=== PATIENT | male | born 1980 | race Hispanic/Latino ===

== ENCOUNTER 2023-06-23 08:03 | Emergency (ER) | payer SELFPAY ==
--- OUTSIDE RECORDS SUMMARY | 2023-06-23 08:07 | XMS REPORT | Continuity of Care Document ---
Author Name Unknown Address [address] [facility] [address] [place] [address] [facility] thconnect Address [address] [facility] [address] [place] [address] Care Team Providers Care District Gauger Name Role Phone Cherie Monterroso Primary Care Physician [phone] Medications Ordered Medication Name Filled Medication Name Start Date Stop Date Current Medication? Ordering Clinician Indication Dosage Frequency Signature (SIG) Comments Components Source Dose Unknown 2021-03 2-14 00:00: 00 No Dose Unknown 807 00:00: 00 No Dose Unknown 2020-03 2-16 00:00: 00 No lisinopril 20 mg tablet 2020-03 2-16 00:00: 00 No 1mg lisinopril 20 mg tablet 0 4-27 00:00: 00 No 1mg Celebrex 200 mg capsule 0 4-27 00:00: 00 No 1mg lisinopril 20 mg tablet 0 4-27 00:00: 00 No 1mg Celebrex 200 mg capsule 0 4-27 00:00: 00 No 1mg lisinopril 20 mg tablet 0 4-17 00:00: 00 No 1mg lisinopril 20 mg tablet 0 4-17 00:00: 00 No 1mg lisinopril 20 mg tablet 0 3-20 00:00: 00 No 1mg lisinopril 20 mg tablet 0 3-20 00:00: 00 No 1mg cyclobenzap rine 10 mg tablet 0 3-13 00:00: 00 No 1mg cyclobenzap rine 10 mg tablet 0 3-13 00:00: 00 No 1mg cyclobenzap rine 10 mg tablet 2017-03 2-14 00:00: 00 No 1mg cyclobenzap rine 10 mg tablet 2017-03 2-14 00:00: 00 No 1mg prednisone 10 mg tablet 06-27 00:00: 00 No mg cyclobenzap rine 10 mg tablet 06-27 00:00: 00 No 1mg ibuprofen 800 mg tablet 06-27 00:00: 00 No 1mg prednisone 10 mg tablet 06-27 00:00: 00 No mg cyclobenzap rine 10 mg tablet 06-27 00:00: 00 No 1mg ibuprofen 800 mg tablet 06-27 00:00: 00 No 1mg Vital Signs Vital Name Observation Time Observation Value Comments S ource BP Systolic 2022-02-24 08:18:00 144 mm[Hg] BP Diastolic 2022-02-24 08:18:00 89 mm[Hg] Weight Measured 2022-02-24 08:18:00 223.40 pounds Height Measured 2022-02-24 08:18:00 71.50 inches Body Temperature 2022-02-24 08:18:00 98.20 degrees Heart Rate 2022-02-24 08:18:00 52.00 /min Respiratory Rate 2022-02-24 08:18:00 18.00 /min BP Systolic 2021-10-21 13:19:00 137 mm[Hg] BP Diastolic 2021-10-21 13:19:00 86 mm[Hg] Weight Measured 2021-10-21 13:19:00 232.20 pounds Height Measured 2021-10-21 13:19:00 71.50 inches Body Temperature 2021-10-21 13:19:00 98.30 degrees Heart Rate 2021-10-21 13:19:00 78.00 /min Respiratory Rate 2021-10-21 13:19:00 18.00 /min BP Systolic 2021-03-03 08:41:00 163 mm[Hg] BP Diastolic 2021-03-03 08:41:00 82 mm[Hg] Weight Measured 2021-03-03 08:41:00 249.40 pounds Height Measured 2021-03-03 08:41:00 71.50 inches Body Temperature 2021-03-03 08:41:00 98.30 degrees Heart Rate 2021-03-03 08:41:00 65.00 /min Respiratory Rate 2021-03-03 08:41:00 21.00 /min BP Systolic 2019-07-14 09:09:00 150 mm[Hg] BP Diastolic 2019-07-14 09:09:00 84 mm[Hg] Weight Measured 2019-07-14 09:09:00 246.60 pounds Height Measured 2019-07-14 09:09:00 71.50 inches Body Temperature 2019-07-14 09:09:00 99.10 degrees Heart Rate 2019-07-14 09:09:00 58.00 /min Respiratory Rate 2019-07-14 09:09:00 16.00 /min BP Systolic 2019-06-06 17:25:00 157 mm[Hg] BP Diastolic 2019-06-06 17:25:00 95 mm[Hg] Weight Measured 2019-06-06 17:25:00 250.40 pounds Height Measured 2019-06-06 17:25:00 71.50 inches Body Temperature 2019-06-06 17:25:00 98.70 degrees Heart Rate 2019-06-06 17:25:00 81.00 /min Respiratory Rate 2019-06-06 17:25:00 16.00 /min BP Systolic 2019-05-30 13:22:00 153 mm[Hg] BP Diastolic 2019-05-30 13:22:00 93 mm[Hg] Weight Measured 2019-05-30 13:22:00 244.60 pounds Height Measured 2019-05-30 13:22:00 71.50 inches Body Temperature 2019-05-30 13:22:00 98.20 degrees Heart Rate 2019-05-30 13:22:00 70.00 /min Respiratory Rate 2019-05-30 13:22:00 BP Systolic 2018-03-01 11:05:00 148 mm[Hg] BP Diastolic 2018-03-01 11:05:00 85 mm[Hg] Weight Measured 2018-03-01 11:05:00 235.40 pounds Height Measured 2018-03-01 11:05:00 71.50 inches Body Temperature 2018-03-01 11:05:00 98.40 degrees Heart Rate 2018-03-01 11:05:00 79.00 /min Respiratory Rate 2018-03-01 11:05:00 16.00 /min BP Systolic 2016-07-11 17:21:00 132 mm[Hg] BP Diastolic 2016-07-11 17:21:00 88 mm[Hg] Weight Measured 2016-07-11 17:21:00 210.00 pounds Height Measured 2016-07-11 17:21:00 71.50 inches Body Temperature 2016-07-11 17:21:00 98.50 degrees Heart Rate 2016-07-11 17:21:00 72.00 /min Respiratory Rate 2016-07-11 17:21:00 15.00 /min BP Systolic 2016-06-27 15:03:00 143 mm[Hg] BP Diastolic 2016-06-27 15:03:00 87 mm[Hg] Weight Measured 2016-06-27 15:03:00 209.20 pounds Height Measured 2016-06-27 15:03:00 71.50 inches Body Temperature 2016-06-27 15:03:00 98.80 degrees Heart Rate 2016-06-27 15:03:00 50.00 /min Respiratory Rate 2016-06-27 15:03:00 Plan of Care Planned Activity Planned Date Details Comments Source Goal Plan of Care Note [code = 39706-0] Goal Plan of Care Note [code = 40155-5] Goal Plan of Care Note [code = 51236-1] Goal Plan of Care Note [code = 88560-1] Goal Plan of Care Note [code = 61133-3] Goal Plan of Care Note [code = 41026-1] Goal Plan of Care Note [code = 32648-5] Goal Plan of Care Note [code = 86723-5] Goal Plan of Care Note [code = 43485-5] Goal Plan of Care Note [code = 50598-3] Goal Plan of Care Note [code = 50409-0] Goal Plan of Care Note [code = 25605-5] Goal Plan of Care Note [code = 84591-7] Goal Plan of Care Note [code = 00485-5] Goal Plan of Care Note [code = 94892-4] Goal Plan of Care Note [code = 16022-1] Goal Plan of Care Note [code = 68471-4] Goal Plan of Care Note [code = 54409-6] Goal Plan of Care Note [code = 14601-7] Goal Plan of Care Note [code = 81113-9] Goal Plan of Care Note [code = 80340-1] Goal Plan of Care Note [code = 50841-9] Goal Plan of Care Note [code = 72340-3] Goal Plan of Care Note [code = 65022-4] Goal Plan of Care Note [code = 98820-0] Goal Plan of Care Note [code = 16403-4] Goal Plan of Care Note [code = 64992-4] Goal Plan of Care Note [code = 30652-9] Goal Plan of Care Note [code = 60217-6] Goal Plan of Care Note [code = 90573-7] Goal Plan of Care Note [code = 05778-9] Goal Plan of Care Note [code = 17983-3] Goal Plan of Care Note [code = 50632-3] Goal Plan of Care Note [code = 51453-9] Goal Plan of Care Note [code = 69627-0] Goal Plan of Care Note [code = 00310-6] Goal Plan of Care Note [code = 53989-3] Goal Plan of Care Note [code = 14439-3] Goal Plan of Care Note [code = 69120-3] Goal Plan of Care Note [code = 95599-8] Goal Plan of Care Note [code = 79442-9] Goal Plan of Care Note [code = 30623-3] Goal Plan of Care Note [code = 59505-0] Goal Plan of Care Note [code = 71928-8] Goal Plan of Care Note [code = 35071-3] Goal Plan of Care Note [code = 94762-5] Goal Plan of Care Note [code = 99981-7] Goal Plan of Care Note [code = 85682-1] Goal Plan of Care Note [code = 83209-0] Goal Plan of Care Note [code = 06253-8] Goal Plan of Care Note [code = 61704-1] Encounters Start Date/Time End Date/Time Encounter Type Admission Type Attending Clinicians Care Facility Care Department Encounter ID Source 2022-03-31 15:42:03 2022-03-31 15:42:03 Outpatient [facility] [id number] K[address] Hay 2022-03-11 09:32:29 2022-03-11 09:32:29 Outpatient [facility] [id number] Kade Hay 2022-03-10 00:00:00 2022-03-10 00:00:00 Outpatient Visit [id number] 2022-02-24 08:08:12 2022-02-24 08:08:12 Outpatient [facility] [id number] Kade Hay 2022-02-24 00:00:00 2022-02-24 00:00:00 Outpatient Visit [id number] 2021-10-21 00:00:00 2021-10-21 00:00:00 Outpatient Visit [id number] Results Test Description Test Time Test Comments Results Result Co mments Source VITAMIN [id number] 06:50:56* Test Item Value Reference Range Interpretation Comme nts VITAMIN B-12 (test code = 2840) 439 PG/ML 200-950 TSH, THIRD [id number] 06:50:56* Test Item Value Reference Range Interpretation Comme nts TSH, THIRD GENERATION (test code = 2821) 2.300 UIU/ML 0.400-4.100 SEDIMENTATION [id number] 04:43:36* Test Item Value Reference Range Interpretation Comme nts SEDIMENTATION RATE (test cod e = 1017) 5 MM/HOUR 0-15 C-REACTIVE [id number] 03:42:32* Test Item Value Reference Range Interpretation Comme nts C-REACTIVE PROTEIN (test code = 3513) <0.3 MG/DL <0.5 UNLESS OTHERW ISE INDICATED, ALL TESTING PERFORMED [facility] [address] [place] [address] AIRLINE RADIO OPERATOR: CESAR BAUER M.D. CLIA NUMBER [id number] [place]. [id number] COMPREHENSIVE METABOLIC [id number] 03:41:56* Test Item Value Reference Range Interpretation Comme nts GLUCOSE (test code = 2216) 109 MG/DL 70-99 H BUN (test code = 2207) 17 MG/DL 6-20 CREATININE (test code = 2213) 0.88 MG/DL 0.80-1.40 eGFR (2020 CKD-EPI) (test code = ) 111 ML/MIN/1.73 >60 CALC BUN/CREAT (test code = 2234) 19 RATIO 6-28 SODIUM (test code = 2230) 142 MEQ/L 133-146 POTASSIUM (test code = 2227) 4.2 MEQ/L 3.5-5.4 CHLORIDE (test code = 2214) 104 MEQ/L 95-107 CARBON DIOXIDE (test code = 2205) 29 MEQ/L 19-31 CALCIUM (test code = 2208) 9.6 MG/DL 8.5-10.5 PROTEIN, TOTAL (test code = 2228) 7.3 G/DL 6.1-8.3 ALBUMIN (test code = 2200) 4.7 G/DL 3.5-5.2 CALC GLOBULIN (test code = 2240) 2.6 G/DL 1.9-3.7 CALC A/G RATIO (test code = 2233) 1.8 RATIO 1.0-2.6 BILIRUBIN, TOTAL (test code = 2206) 0.2 MG/DL See_Comment [Automated me ssage] The system which generated this result transmitted reference range: <=1.2. The reference range was not used to interpret this result as normal/abnormal. ALKALINE PHOSPHATASE (test code = 2203) 80 U/L 40-119 AST (test code = 8) 17 U/L 9-50 ALT (test code = 2219) 24 U/L 5-50 HEMOGLOBIN [id number] 14:02:09* Test Item Value Reference Range Interpretation Comme nts HEMOGLOBIN A1c (test code = 07612) 5.5 % 4.2-5.6 UNLESS OTHERWISE INDICATED, ALL TESTING PERFORMED [facility] [address] [place] [address] AIRLINE RADIO OPERATOR: CESAR BAUER M.D. CLIA NUMBER [id number] [place]. [id number] LIPID [id number] 04:41:30* Test Item Value Reference Range Interpretation Comme nts CHOLESTEROL (test code = 2210) 152 MG/DL <200 TRIGLYCERIDES (test code = 2232) 149 MG/DL <150 HDL CHOLESTEROL (test code = 2220) 39 MG/DL >39 L CALC LDL CHOL (test code = 2237) 88 MG/DL <100 NOTE: CALCULATED LDL IS BASED ON JOHN-EDGE METHOD WHICHINCLUDES ADJUSTABLE TRIGLYCERIDE:VLDL CHOLESTEROL RATIO.THIS FACTOR VARIES BY MEASURED TRIGLYCERIDE AND NON-HDLCHOLESTEROL CONCENTRATIONS WITH INCREASED CALCULATED LDL SEENIN HIGHER TRIGLYCERIDE OR LOWER NON-HDL SPECIMENS. FOR MOREINFORMATION, SEE CLIENT ANNOUNCEMENT AT [email or web address] RISK RATIO LDL/HDL (test code = 2238) 2.26 RATIO <3.55 COMPREHENSIVE METABOLIC [id number] 04:41:30* Test Item Value Reference Range Interpretation Comme nts GLUCOSE (test code = 2217) 102 MG/DL 70-99 H BUN (test code = 8) 19 MG/DL 6-20 CREATININE (test code = 2214) 0.95 MG/DL 0.80-1.40 eGFR (2020 CKD-EPI) (test code = 99632) 104 ML/MIN/1.73 >60 CALC BUN/CREAT (test code = 2235) 20 RATIO 6-28 SODIUM (test code = 223) 143 MEQ/L 133-146 POTASSIUM (test code = 2228) 4.3 MEQ/L 3.5-5.4 CHLORIDE (test code = 2215) 104 MEQ/L 95-107 CARBON DIOXIDE (test code = 2206) 27 MEQ/L 19-31 CALCIUM (test code = 2209) 9.6 MG/DL 8.5-10.5 PROTEIN, TOTAL (test code = 222) 7.1 G/DL 6.1-8.3 ALBUMIN (test code = 2201) 4.8 G/DL 3.5-5.2 CALC GLOBULIN (test code = 2240) 2.3 G/DL 1.9-3.7 CALC A/G RATIO (test code = 2234) 2.1 RATIO 1.0-2.6 BILIRUBIN, TOTAL (test code = 2206) 0.6 MG/DL See_Comment [Automated me ssage] The system which generated this result transmitted reference range: <=1.2. The reference range was not used to interpret this result as normal/abnormal. ALKALINE PHOSPHATASE (test code = 2204) 73 U/L 40-117 AST (test code = 2218) 18 U/L 9-50 ALT (test code = 2219) 25 U/L 5-50 UNLESS OTHERWISE INDICATED, ALL TESTING PERFORMED [facility] [address] [place] [address] AIRLINE RADIO OPERATOR: CESAR BAUER M.D. CLIA NUMBER [id number] [place]. [id number] LIPID [id number] 00:00:00* Test Item Value Reference Range Interpretation Comme nts CHOLESTEROL (test code = 2210) 152 MG/DL TRIGLYCERIDES (test code = 2232) 149 MG/DL HDL CHOLESTEROL (test code = 2220) 39 MG/DL CALC LDL CHOL (test code = 2237) 88 MG/DL RISK RATIO LDL/HDL (test cod e = 2238) 2.26 RATIO LIPID [id number] 00:00:00* Test Item Value Reference Range Interpretation Comme nts CHOLESTEROL (test code = 2210) 152 MG/DL TRIGLYCERIDES (test code = 2232) 149 MG/DL HDL CHOLESTEROL (test code = 2220) 39 MG/DL CALC LDL CHOL (test code = 2237) 88 MG/DL RISK RATIO LDL/HDL (test cod e = 2238) 2.26 RATIO COMPREHENSIVE METABOLIC [id number] 00:00:00* Test Item Value Reference Range Interpretation Comme nts GLUCOSE (test code = 2217) 102 MG/DL BUN (test code = 2208) 19 MG/DL CREATININE (test code = 2214) 0.95 MG/DL eGFR (2020 CKD-EPI) (test code = 59566) 104 ML/MIN/1.73 CALC BUN/CREAT (test code = 2235) 20 RATIO SODIUM (test code = 2231) 143 MEQ/L POTASSIUM (test code = 2228) 4.3 MEQ/L CHLORIDE (test code = 2215) 104 MEQ/L CARBON DIOXIDE (test code = 2206) 27 MEQ/L CALCIUM (test code = 2209) 9.6 MG/DL PROTEIN, TOTAL (test code = 2229) 7.1 G/DL ALBUMIN (test code = 2201) 4.8 G/DL CALC GLOBULIN (test code = 2240) 2.3 G/DL CALC A/G RATIO (test code = 2234) 2.1 RATIO BILIRUBIN, TOTAL (test code = 2207) 0.6 MG/DL ALKALINE PHOSPHATASE (test code = 2204) 73 U/L AST (test code = 2218) 18 U/L ALT (test code = 2219) 25 U/L COMPREHENSIVE METABOLIC [id number] 00:00:00* Test Item Value Reference Range Interpretation Comme nts GLUCOSE (test code = 2217) 102 MG/DL BUN (test code = 2208) 19 MG/DL CREATININE (test code = 2214) 0.95 MG/DL eGFR (2020 CKD-EPI) (test code = 89140) 104 ML/MIN/1.73 CALC BUN/CREAT (test code = 2235) 20 RATIO SODIUM (test code = 2231) 143 MEQ/L POTASSIUM (test code = 2228) 4.3 MEQ/L CHLORIDE (test code = 2215) 104 MEQ/L CARBON DIOXIDE (test code = 2206) 27 MEQ/L CALCIUM (test code = 2209) 9.6 MG/DL PROTEIN, TOTAL (test code = 2229) 7.1 G/DL ALBUMIN (test code = 2201) 4.8 G/DL CALC GLOBULIN (test code = 2240) 2.3 G/DL CALC A/G RATIO (test code = 2234) 2.1 RATIO BILIRUBIN, TOTAL (test code = 2207) 0.6 MG/DL ALKALINE PHOSPHATASE (test code = 2204) 73 U/L AST (test code = 2218) 18 U/L ALT (test code = 2219) 25 U/L LIPID [id number] 00:00:00* Test Item Value Reference Range Interpretation Comme nts CHOLESTEROL (test code = 2210) 152 MG/DL TRIGLYCERIDES (test code = 2232) 149 MG/DL HDL CHOLESTEROL (test code = 2220) 39 MG/DL CALC LDL CHOL (test code = 2237) 88 MG/DL RISK RATIO LDL/HDL (test cod e = 2238) 2.26 RATIO LIPID [id number] 00:00:00* Test Item Value Reference Range Interpretation Comme nts CHOLESTEROL (test code = 2210) 152 MG/DL TRIGLYCERIDES (test code = 2232) 149 MG/DL HDL CHOLESTEROL (test code = 2220) 39 MG/DL CALC LDL CHOL (test code = 2237) 88 MG/DL RISK RATIO LDL/HDL (test cod e = 2238) 2.26 RATIO COMPREHENSIVE METABOLIC [id number] 00:00:00* Test Item Value Reference Range Interpretation Comme nts GLUCOSE (test code = 2217) 102 MG/DL BUN (test code = 2208) 19 MG/DL CREATININE (test code = 2214) 0.95 MG/DL eGFR (2020 CKD-EPI) (test code = 59932) 104 ML/MIN/1.73 CALC BUN/CREAT (test code = 2235) 20 RATIO SODIUM (test code = 2231) 143 MEQ/L POTASSIUM (test code = 2228) 4.3 MEQ/L CHLORIDE (test code = 2215) 104 MEQ/L CARBON DIOXIDE (test code = 2206) 27 MEQ/L CALCIUM (test code = 2209) 9.6 MG/DL PROTEIN, TOTAL (test code = 2229) 7.1 G/DL ALBUMIN (test code = 2201) 4.8 G/DL CALC GLOBULIN (test code = 2240) 2.3 G/DL CALC A/G RATIO (test code = 2234) 2.1 RATIO BILIRUBIN, TOTAL (test code = 2207) 0.6 MG/DL ALKALINE PHOSPHATASE (test code = 2204) 73 U/L AST (test code = 2218) 18 U/L ALT (test code = 2219) 25 U/L COMPREHENSIVE METABOLIC [id number] 00:00:00* Test Item Value Reference Range Interpretation Comme nts GLUCOSE (test code = 2217) 102 MG/DL BUN (test code = 2208) 19 MG/DL CREATININE (test code = 2214) 0.95 MG/DL eGFR (2020 CKD-EPI) (test code = 93759) 104 ML/MIN/1.73 CALC BUN/CREAT (test code = 2235) 20 RATIO SODIUM (test code = 2231) 143 MEQ/L POTASSIUM (test code = 2228) 4.3 MEQ/L CHLORIDE (test code = 2215) 104 MEQ/L CARBON DIOXIDE (test code = 2206) 27 MEQ/L CALCIUM (test code = 2209) 9.6 MG/DL PROTEIN, TOTAL (test code = 2229) 7.1 G/DL ALBUMIN (test code = 2201) 4.8 G/DL CALC GLOBULIN (test code = 2240) 2.3 G/DL CALC A/G RATIO (test code = 2234) 2.1 RATIO BILIRUBIN, TOTAL (test code = 2207) 0.6 MG/DL ALKALINE PHOSPHATASE (test code = 2204) 73 U/L AST (test code = 2218) 18 U/L ALT (test code = 2219) 25 U/L PSA, [id number] 05:29:41* Test Item Value Reference Range Interpretation Comme nts PSA, TOTAL (test code = 2606) 0.32 NG/ML See_Comment NOTE: Methodolog y is Gill Evelina Electrochemiluminescence Immunoassay traceable to WHO reference standard 96/760. UNLESS OTHERWISE INDICATED, ALL TESTING PERFORMED [facility] [address] [place] [address] AIRLINE RADIO OPERATOR: CESAR BAUER M.D. [place] NUMBER [id number] [place]. [id number] [Automated message] The system which generated this result transmitted reference range: <=4.00. The reference range was not used to interpret this result as normal/abnormal. LIPID [id number] 03:50:33* Test Item Value Reference Range Interpretation Comme nts CHOLESTEROL (test code = 2210) 133 MG/DL <200 TRIGLYCERIDES (test code = 2232) 108 MG/DL <150 HDL CHOLESTEROL (test code = 2220) 34 MG/DL >39 L CALC LDL CHOL (test code = 2237) 80 MG/DL <100 NOTE: CALCULATED LDL IS BASED ON JOHN-EDGE METHOD WHICHINCLUDES ADJUSTABLE TRIGLYCERIDE:VLDL CHOLESTEROL RATIO.THIS FACTOR VARIES BY MEASURED TRIGLYCERIDE AND NON-HDLCHOLESTEROL CONCENTRATIONS WITH INCREASED CALCULATED LDL SEENIN HIGHER TRIGLYCERIDE OR LOWER NON-HDL SPECIMENS. FOR MOREINFORMATION, SEE CLIENT ANNOUNCEMENT AT [email or web address] RISK RATIO LDL/HDL (test code = 2238) 2.35 RATIO <3.55 COMPREHENSIVE METABOLIC [id number] 03:50:33* Test Item Value Reference Range Interpretation Comme nts GLUCOSE (test code = 2217) 107 MG/DL 70-99 H BUN (test code = 2208) 21 MG/DL 6-20 H CREATININE (test code = 2213) 0.93 MG/DL 0.80-1.40 EFFECTIVE 02/28/2021, [facility] HAS IMPLEMENTED THE NKF-ASN RECOMMENDED KD-EPI EGFR REFIT CALCULATION THAT DOES NOT INCLUDE A COEFFICIENT FORRACE. FOR MORE INFORMATION, SEE ANNOUNCEMENT [email or web address] .[employer]/EGFR_CALC eGFR (2020 CKD-EPI) (test code = ) 106 ML/MIN/1.73 >60 CALC BUN/CREAT (test code = 2234) 23 RATIO 6-28 SODIUM (test code = 2230) 145 MEQ/L 133-146 POTASSIUM (test code = 2227) 4.6 MEQ/L 3.5-5.4 CHLORIDE (test code = 2214) 107 MEQ/L 95-107 CARBON DIOXIDE (test code = 2205) 26 MEQ/L 19-31 CALCIUM (test code = 2208) 9.5 MG/DL 8.5-10.5 PROTEIN, TOTAL (test code = 2228) 7.3 G/DL 6.1-8.3 ALBUMIN (test code = 2200) 4.8 G/DL 3.5-5.2 CALC GLOBULIN (test code = 2240) 2.5 G/DL 1.9-3.7 CALC A/G RATIO (test code = 2233) 1.9 RATIO 1.0-2.6 BILIRUBIN, TOTAL (test code = 2206) 0.4 MG/DL See_Comment [Automated me ssage] The system which generated this result transmitted reference range: <=1.2. The reference range was not used to interpret this result as normal/abnormal. ALKALINE PHOSPHATASE (test code = 2203) 100 U/L 40-117 AST (test code = 2218) 23 U/L 9-50 ALT (test code = 2219) 32 U/L 5-50 CBC W/AUTO DIFF WITH [id number] 03:49:19* Test Item Value Reference Range Interpretation Comme nts WBC (test code = 1001) 6.0 K/UL 3.5-11.0 RBC (test code = 1002) 5.05 M/UL 4.50-6.10 HEMOGLOBIN (test code = 1003) 14.5 G/DL 13.5-17.0 HEMATOCRIT (test code = 1004) 42.7 % 40.0-51.0 MCV (test code = 1005) 84.6 fL 80.0-99.0 MCH (test code = 1006) 28.7 PG 25.0-33.0 MCHC (test code = 1007) 34.0 G/DL 31.0-36.0 RDW (test code = 1038) 12.9 % 11.5-15.0 NEUTROPHILS (test code = 1008) 56.2 % NOTE: EFFECTIVE 02/07/2021, REFERENCE INTERVALS AND FLAGGING FORRELATIVE (%) WBC DIFFERENTIAL WILL BE ELIMINATED REDUNDANT TOABSOLUTE COUNTS.SEE [email or web address] te LYMPHOCYTES (test code = 1010) 31.4 % MONOCYTES (test code = 1011) 6.5 % EOSINOPHILS (test code = 1012) 5.3 % BASOPHILS (test code = 1013) 0.3 % IMMATURE GRANYLOCYTES (test code = 1036) 0.3 % NUCLEATED RBCS (test code = 1065) 0.0 /100 WBC'S See_Comment [Automated message] The system which generated this result transmitted reference range: 0.0. The reference range was not used to interpret this result as normal/abnormal. PLATELET COUNT (test code = 1015) 236 K/UL 130-400 ABSOLUTE NEUTROPHILS (test code = 1066) 3.37 K/UL 1.50-7.50 ABSOLUTE LYMPHOCYTES (test code = 1067) 1.89 K/UL 1.00-4.00 ABSOLUTE MONOCYTES (test code = 1068) 0.39 K/UL 0.20-1.00 ABSOLUTE EOSINOPHILS (test code = 1040) 0.32 K/UL 0.00-0.50 ABSOLUTE BASOPHILS (test code = 1069) 0.02 K/UL 0.00-0.20 ABS IMMATURE GRANULOCYTES (test code = 1020) 0.02 K/UL 0.00-0.10 ABS NUCLEATED RBCS (test code = 94006) 0.00 K/UL 0.00-0.11 COMPREHENSIVE METABOLIC [id number] 00:00:00* Test Item Value Reference Range Interpretation Comme nts GLUCOSE (test code = 2217) 107 MG/DL BUN (test code = 2208) 21 MG/DL CREATININE (test code = 2214) 0.93 MG/DL eGFR (2020 CKD-EPI) (test code = 76669) 106 ML/MIN/1.73 CALC BUN/CREAT (test code = 2235) 23 RATIO SODIUM (test code = 2231) 145 MEQ/L POTASSIUM (test code = 2228) 4.6 MEQ/L CHLORIDE (test code = 2215) 107 MEQ/L CARBON DIOXIDE (test code = 2206) 26 MEQ/L CALCIUM (test code = 2209) 9.5 MG/DL PROTEIN, TOTAL (test code = 2229) 7.3 G/DL ALBUMIN (test code = 2201) 4.8 G/DL CALC GLOBULIN (test code = 2240) 2.5 G/DL CALC A/G RATIO (test code = 2234) 1.9 RATIO BILIRUBIN, TOTAL (test code = 2207) 0.4 MG/DL ALKALINE PHOSPHATASE (test code = 2204) 100 U/L AST (test code = 2218) 23 U/L ALT (test code = 2219) 32 U/L PSA, [id number] 00:00:00* Test Item Value Reference Range Interpretation Comme nts PSA, TOTAL (test code = 2606) 0.32 NG/ML PSA, [id number] 00:00:00* Test Item Value Reference Range Interpretation Comme nts PSA, TOTAL (test code = 2606) 0.32 NG/ML PSA, [id number] 00:00:00* Test Item Value Reference Range Interpretation Comme nts PSA, TOTAL (test code = 2606) 0.32 NG/ML CBC W/AUTO [id number] 00:00:00* Test Item Value Reference Range Interpretation Comme nts WBC (test code = 1001) 6.0 K/UL RBC (test code = 1002) 5.05 M/UL HEMOGLOBIN (test code = 1003) 14.5 G/DL HEMATOCRIT (test code = 1004) 42.7 % MCV (test code = 1005) 84.6 fL MCH (test code = 1006) 28.7 PG MCHC (test code = 1007) 34.0 G/DL RDW (test code = 1038) 12.9 % NEUTROPHILS (test code = 1008) 56.2 % LYMPHOCYTES (test code = 1010) 31.4 % MONOCYTES (test code = 1011) 6.5 % EOSINOPHILS (test code = 1012) 5.3 % BASOPHILS (test code = 1013) 0.3 % IMMATURE GRANYLOCYTES (test code = 1036) 0.3 % NUCLEATED RBCS (test code = 1065) 0.0 /100WBC'S PLATELET COUNT (test code = 1015) 236 K/UL ABSOLUTE NEUTROPHILS (test c ode = 1066) 3.37 K/UL ABSOLUTE LYMPHOCYTES (test c ode = 1067) 1.89 K/UL ABSOLUTE MONOCYTES (test cod e = 1068) 0.39 K/UL ABSOLUTE EOSINOPHILS (test c ode = 1040) 0.32 K/UL ABSOLUTE BASOPHILS (test cod e = 1069) 0.02 K/UL ABS IMMATURE GRANULOCYTES (t est code = 1020) 0.02 K/UL ABS NUCLEATED RBCS (test cod e = 93329) 0.00 K/UL CBC W/AUTO [id number] 00:00:00* Test Item Value Reference Range Interpretation Comme nts WBC (test code = 1001) 6.0 K/UL RBC (test code = 1002) 5.05 M/UL HEMOGLOBIN (test code = 1003) 14.5 G/DL HEMATOCRIT (test code = 1004) 42.7 % MCV (test code = 1005) 84.6 fL MCH (test code = 1006) 28.7 PG MCHC (test code = 1007) 34.0 G/DL RDW (test code = 1038) 12.9 % NEUTROPHILS (test code = 1008) 56.2 % LYMPHOCYTES (test code = 1010) 31.4 % MONOCYTES (test code = 1011) 6.5 % EOSINOPHILS (test code = 1012) 5.3 % BASOPHILS (test code = 1013) 0.3 % IMMATURE GRANYLOCYTES (test code = 1036) 0.3 % NUCLEATED RBCS (test code = 1065) 0.0 /100WBC'S PLATELET COUNT (test code = 1015) 236 K/UL ABSOLUTE NEUTROPHILS (test c ode = 1066) 3.37 K/UL ABSOLUTE LYMPHOCYTES (test c ode = 1067) 1.89 K/UL ABSOLUTE MONOCYTES (test cod e = 1068) 0.39 K/UL ABSOLUTE EOSINOPHILS (test c ode = 1040) 0.32 K/UL ABSOLUTE BASOPHILS (test cod e = 1069) 0.02 K/UL ABS IMMATURE GRANULOCYTES (t est code = 1020) 0.02 K/UL ABS NUCLEATED RBCS (test cod e = 75707) 0.00 K/UL CBC W/AUTO [id number] 00:00:00* Test Item Value Reference Range Interpretation Comme nts WBC (test code = 1001) 6.0 K/UL RBC (test code = 1002) 5.05 M/UL HEMOGLOBIN (test code = 1003) 14.5 G/DL HEMATOCRIT (test code = 1004) 42.7 % MCV (test code = 1005) 84.6 fL MCH (test code = 1006) 28.7 PG MCHC (test code = 1007) 34.0 G/DL RDW (test code = 1038) 12.9 % NEUTROPHILS (test code = 1008) 56.2 % LYMPHOCYTES (test code = 1010) 31.4 % MONOCYTES (test code = 1011) 6.5 % EOSINOPHILS (test code = 1012) 5.3 % BASOPHILS (test code = 1013) 0.3 % IMMATURE GRANYLOCYTES (test code = 1036) 0.3 % NUCLEATED RBCS (test code = 1065) 0.0 /100WBC'S PLATELET COUNT (test code = 1015) 236 K/UL ABSOLUTE NEUTROPHILS (test c ode = 1066) 3.37 K/UL ABSOLUTE LYMPHOCYTES (test c ode = 1067) 1.89 K/UL ABSOLUTE MONOCYTES (test cod e = 1068) 0.39 K/UL ABSOLUTE EOSINOPHILS (test c ode = 1040) 0.32 K/UL ABSOLUTE BASOPHILS (test cod e = 1069) 0.02 K/UL ABS IMMATURE GRANULOCYTES (t est code = 1020) 0.02 K/UL ABS NUCLEATED RBCS (test cod e = 99749) 0.00 K/UL CBC W/AUTO [id number] 00:00:00* Test Item Value Reference Range Interpretation Comme nts WBC (test code = 1001) 6.0 K/UL RBC (test code = 1002) 5.05 M/UL HEMOGLOBIN (test code = 1003) 14.5 G/DL HEMATOCRIT (test code = 1004) 42.7 % MCV (test code = 1005) 84.6 fL MCH (test code = 1006) 28.7 PG MCHC (test code = 1007) 34.0 G/DL RDW (test code = 1038) 12.9 % NEUTROPHILS (test code = 1008) 56.2 % LYMPHOCYTES (test code = 1010) 31.4 % MONOCYTES (test code = 1011) 6.5 % EOSINOPHILS (test code = 1012) 5.3 % BASOPHILS (test code = 1013) 0.3 % IMMATURE GRANYLOCYTES (test code = 1036) 0.3 % NUCLEATED RBCS (test code = 1065) 0.0 /100WBC'S PLATELET COUNT (test code = 1015) 236 K/UL ABSOLUTE NEUTROPHILS (test c ode = 1066) 3.37 K/UL ABSOLUTE LYMPHOCYTES (test c ode = 1067) 1.89 K/UL ABSOLUTE MONOCYTES (test cod e = 1068) 0.39 K/UL ABSOLUTE EOSINOPHILS (test c ode = 1040) 0.32 K/UL ABSOLUTE BASOPHILS (test cod e = 1069) 0.02 K/UL ABS IMMATURE GRANULOCYTES (t est code = 1020) 0.02 K/UL ABS NUCLEATED RBCS (test cod e = 06082) 0.00 K/UL CBC W/AUTO [id number] 00:00:00* Test Item Value Reference Range Interpretation Comme nts WBC (test code = 1001) 6.0 K/UL RBC (test code = 1002) 5.05 M/UL HEMOGLOBIN (test code = 1003) 14.5 G/DL HEMATOCRIT (test code = 1004) 42.7 % MCV (test code = 1005) 84.6 fL MCH (test code = 1006) 28.7 PG MCHC (test code = 1007) 34.0 G/DL RDW (test code = 1038) 12.9 % NEUTROPHILS (test code = 1008) 56.2 % LYMPHOCYTES (test code = 1010) 31.4 % MONOCYTES (test code = 1011) 6.5 % EOSINOPHILS (test code = 1012) 5.3 % BASOPHILS (test code = 1013) 0.3 % IMMATURE GRANYLOCYTES (test code = 1036) 0.3 % NUCLEATED RBCS (test code = 1065) 0.0 /100WBC'S PLATELET COUNT (test code = 1015) 236 K/UL ABSOLUTE NEUTROPHILS (test c ode = 1066) 3.37 K/UL ABSOLUTE LYMPHOCYTES (test c ode = 1067) 1.89 K/UL ABSOLUTE MONOCYTES (test cod e = 1068) 0.39 K/UL ABSOLUTE EOSINOPHILS (test c ode = 1040) 0.32 K/UL ABSOLUTE BASOPHILS (test cod e = 1069) 0.02 K/UL ABS IMMATURE GRANULOCYTES (t est code = 1020) 0.02 K/UL ABS NUCLEATED RBCS (test cod e = 84957) 0.00 K/UL LIPID [id number] 00:00:00* Test Item Value Reference Range Interpretation Comme nts CHOLESTEROL (test code = 2210) 133 MG/DL TRIGLYCERIDES (test code = 2232) 108 MG/DL HDL CHOLESTEROL (test code = 2220) 34 MG/DL CALC LDL CHOL (test code = 2237) 80 MG/DL RISK RATIO LDL/HDL (test cod e = 2238) 2.35 RATIO LIPID [id number] 00:00:00* Test Item Value Reference Range Interpretation Comme nts CHOLESTEROL (test code = 2210) 133 MG/DL TRIGLYCERIDES (test code = 2232) 108 MG/DL HDL CHOLESTEROL (test code = 2220) 34 MG/DL CALC LDL CHOL (test code = 2237) 80 MG/DL RISK RATIO LDL/HDL (test cod e = 2238) 2.35 RATIO COMPREHENSIVE METABOLIC [id number] 00:00:00* Test Item Value Reference Range Interpretation Comme nts GLUCOSE (test code = 2217) 107 MG/DL BUN (test code = 2208) 21 MG/DL CREATININE (test code = 2214) 0.93 MG/DL eGFR (2020 CKD-EPI) (test code = 08594) 106 ML/MIN/1.73 CALC BUN/CREAT (test code = 2235) 23 RATIO SODIUM (test code = 2231) 145 MEQ/L POTASSIUM (test code = 2228) 4.6 MEQ/L CHLORIDE (test code = 2215) 107 MEQ/L CARBON DIOXIDE (test code = 2206) 26 MEQ/L CALCIUM (test code = 2209) 9.5 MG/DL PROTEIN, TOTAL (test code = 2229) 7.3 G/DL ALBUMIN (test code = 2201) 4.8 G/DL CALC GLOBULIN (test code = 2240) 2.5 G/DL CALC A/G RATIO (test code = 2234) 1.9 RATIO BILIRUBIN, TOTAL (test code = 2207) 0.4 MG/DL ALKALINE PHOSPHATASE (test code = 2204) 100 U/L AST (test code = 2218) 23 U/L ALT (test code = 2219) 32 U/L COMPREHENSIVE METABOLIC [id number] 00:00:00* Test Item Value Reference Range Interpretation Comme nts GLUCOSE (test code = 2217) 107 MG/DL BUN (test code = 2208) 21 MG/DL CREATININE (test code = 2214) 0.93 MG/DL eGFR (2020 CKD-EPI) (test code = 63618) 106 ML/MIN/1.73 CALC BUN/CREAT (test code = 2235) 23 RATIO SODIUM (test code = 2231) 145 MEQ/L POTASSIUM (test code = 2228) 4.6 MEQ/L CHLORIDE (test code = 2215) 107 MEQ/L CARBON DIOXIDE (test code = 2206) 26 MEQ/L CALCIUM (test code = 2209) 9.5 MG/DL PROTEIN, TOTAL (test code = 2229) 7.3 G/DL ALBUMIN (test code = 2201) 4.8 G/DL CALC GLOBULIN (test code = 2240) 2.5 G/DL CALC A/G RATIO (test code = 2234) 1.9 RATIO BILIRUBIN, TOTAL (test code = 2207) 0.4 MG/DL ALKALINE PHOSPHATASE (test code = 2204) 100 U/L AST (test code = 2218) 23 U/L ALT (test code = 2219) 32 U/L LIPID [id number] 00:00:00* Test Item Value Reference Range Interpretation Comme nts CHOLESTEROL (test code = 2210) 133 MG/DL TRIGLYCERIDES (test code = 2232) 108 MG/DL HDL CHOLESTEROL (test code = 2220) 34 MG/DL CALC LDL CHOL (test code = 2237) 80 MG/DL RISK RATIO LDL/HDL (test cod e = 2238) 2.35 RATIO PSA, [id number] 00:00:00* Test Item Value Reference Range Interpretation Comme nts PSA, TOTAL (test code = 2606) 0.32 NG/ML PSA, [id number] 00:00:00* Test Item Value Reference Range Interpretation Comme nts PSA, TOTAL (test code = 2606) 0.32 NG/ML PSA, [id number] 00:00:00* Test Item Value Reference Range Interpretation Comme nts PSA, TOTAL (test code = 2606) 0.32 NG/ML COMPREHENSIVE METABOLIC [id number] 00:00:00* Test Item Value Reference Range Interpretation Comme nts GLUCOSE (test code = 2217) 107 MG/DL BUN (test code = 2208) 21 MG/DL CREATININE (test code = 2214) 0.93 MG/DL eGFR (2020 CKD-EPI) (test code = 19011) 106 ML/MIN/1.73 CALC BUN/CREAT (test code = 2235) 23 RATIO SODIUM (test code = 2231) 145 MEQ/L POTASSIUM (test code = 2228) 4.6 MEQ/L CHLORIDE (test code = 2215) 107 MEQ/L CARBON DIOXIDE (test code = 2206) 26 MEQ/L CALCIUM (test code = 2209) 9.5 MG/DL PROTEIN, TOTAL (test code = 2229) 7.3 G/DL ALBUMIN (test code = 2201) 4.8 G/DL CALC GLOBULIN (test code = 2240) 2.5 G/DL CALC A/G RATIO (test code = 2234) 1.9 RATIO BILIRUBIN, TOTAL (test code = 2207) 0.4 MG/DL ALKALINE PHOSPHATASE (test code = 2204) 100 U/L AST (test code = 2218) 23 U/L ALT (test code = 2219) 32 U/L PSA, [id number] 00:00:00* Test Item Value Reference Range Interpretation Comme nts PSA, TOTAL (test code = 2606) 0.32 NG/ML PSA, [id number] 00:00:00* Test Item Value Reference Range Interpretation Comme nts PSA, TOTAL (test code = 2606) 0.32 NG/ML CBC W/AUTO [id number] 00:00:00* Test Item Value Reference Range Interpretation Comme nts WBC (test code = 1001) 6.0 K/UL RBC (test code = 1002) 5.05 M/UL HEMOGLOBIN (test code = 1003) 14.5 G/DL HEMATOCRIT (test code = 1004) 42.7 % MCV (test code = 1005) 84.6 fL MCH (test code = 1006) 28.7 PG MCHC (test code = 1007) 34.0 G/DL RDW (test code = 1038) 12.9 % NEUTROPHILS (test code = 1008) 56.2 % LYMPHOCYTES (test code = 1010) 31.4 % MONOCYTES (test code = 1011) 6.5 % EOSINOPHILS (test code = 1012) 5.3 % BASOPHILS (test code = 1013) 0.3 % IMMATURE GRANYLOCYTES (test code = 1036) 0.3 % NUCLEATED RBCS (test code = 1065) 0.0 /100WBC'S PLATELET COUNT (test code = 1015) 236 K/UL ABSOLUTE NEUTROPHILS (test c ode = 1066) 3.37 K/UL ABSOLUTE LYMPHOCYTES (test c ode = 1067) 1.89 K/UL ABSOLUTE MONOCYTES (test cod e = 1068) 0.39 K/UL ABSOLUTE EOSINOPHILS (test c ode = 1040) 0.32 K/UL ABSOLUTE BASOPHILS (test cod e = 1069) 0.02 K/UL ABS IMMATURE GRANULOCYTES (t est code = 1020) 0.02 K/UL ABS NUCLEATED RBCS (test cod e = 71734) 0.00 K/UL CBC W/AUTO [id number] 00:00:00* Test Item Value Reference Range Interpretation Comme nts WBC (test code = 1001) 6.0 K/UL RBC (test code = 1002) 5.05 M/UL HEMOGLOBIN (test code = 1003) 14.5 G/DL HEMATOCRIT (test code = 1004) 42.7 % MCV (test code = 1005) 84.6 fL MCH (test code = 1006) 28.7 PG MCHC (test code = 1007) 34.0 G/DL RDW (test code = 1038) 12.9 % NEUTROPHILS (test code = 1008) 56.2 % LYMPHOCYTES (test code = 1010) 31.4 % MONOCYTES (test code = 1011) 6.5 % EOSINOPHILS (test code = 1012) 5.3 % BASOPHILS (test code = 1013) 0.3 % IMMATURE GRANYLOCYTES (test code = 1036) 0.3 % NUCLEATED RBCS (test code = 1065) 0.0 /100WBC'S PLATELET COUNT (test code = 1015) 236 K/UL ABSOLUTE NEUTROPHILS (test c ode = 1066) 3.37 K/UL ABSOLUTE LYMPHOCYTES (test c ode = 1067) 1.89 K/UL ABSOLUTE MONOCYTES (test cod e = 1068) 0.39 K/UL ABSOLUTE EOSINOPHILS (test c ode = 1040) 0.32 K/UL ABSOLUTE BASOPHILS (test cod e = 1069) 0.02 K/UL ABS IMMATURE GRANULOCYTES (t est code = 1020) 0.02 K/UL ABS NUCLEATED RBCS (test cod e = 70898) 0.00 K/UL CBC W/AUTO [id number] 00:00:00* Test Item Value Reference Range Interpretation Comme nts WBC (test code = 1001) 6.0 K/UL RBC (test code = 1002) 5.05 M/UL HEMOGLOBIN (test code = 1003) 14.5 G/DL HEMATOCRIT (test code = 1004) 42.7 % MCV (test code = 1005) 84.6 fL MCH (test code = 1006) 28.7 PG MCHC (test code = 1007) 34.0 G/DL RDW (test code = 1038) 12.9 % NEUTROPHILS (test code = 1008) 56.2 % LYMPHOCYTES (test code = 1010) 31.4 % MONOCYTES (test code = 1011) 6.5 % EOSINOPHILS (test code = 1012) 5.3 % BASOPHILS (test code = 1013) 0.3 % IMMATURE GRANYLOCYTES (test code = 1036) 0.3 % NUCLEATED RBCS (test code = 1065) 0.0 /100WBC'S PLATELET COUNT (test code = 1015) 236 K/UL ABSOLUTE NEUTROPHILS (test c ode = 1066) 3.37 K/UL ABSOLUTE LYMPHOCYTES (test c ode = 1067) 1.89 K/UL ABSOLUTE MONOCYTES (test cod e = 1068) 0.39 K/UL ABSOLUTE EOSINOPHILS (test c ode = 1040) 0.32 K/UL ABSOLUTE BASOPHILS (test cod e = 1069) 0.02 K/UL ABS IMMATURE GRANULOCYTES (t est code = 1020) 0.02 K/UL ABS NUCLEATED RBCS (test cod e = 38885) 0.00 K/UL LIPID [id number] 00:00:00* Test Item Value Reference Range Interpretation Comme nts CHOLESTEROL (test code = 2210) 133 MG/DL TRIGLYCERIDES (test code = 2232) 108 MG/DL HDL CHOLESTEROL (test code = 2220) 34 MG/DL CALC LDL CHOL (test code = 2237) 80 MG/DL RISK RATIO LDL/HDL (test cod e = 2238) 2.35 RATIO LIPID [id number] 00:00:00* Test Item Value Reference Range Interpretation Comme nts CHOLESTEROL (test code = 2210) 133 MG/DL TRIGLYCERIDES (test code = 2232) 108 MG/DL HDL CHOLESTEROL (test code = 2220) 34 MG/DL CALC LDL CHOL (test code = 2237) 80 MG/DL RISK RATIO LDL/HDL (test cod e = 2238) 2.35 RATIO COMPREHENSIVE METABOLIC [id number] 00:00:00* Test Item Value Reference Range Interpretation Comme nts GLUCOSE (test code = 2217) 107 MG/DL BUN (test code = 2208) 21 MG/DL CREATININE (test code = 2214) 0.93 MG/DL eGFR (2020 CKD-EPI) (test code = 65574) 106 ML/MIN/1.73 CALC BUN/CREAT (test code = 2235) 23 RATIO SODIUM (test code = 2231) 145 MEQ/L POTASSIUM (test code = 2228) 4.6 MEQ/L CHLORIDE (test code = 2215) 107 MEQ/L CARBON DIOXIDE (test code = 2206) 26 MEQ/L CALCIUM (test code = 2209) 9.5 MG/DL PROTEIN, TOTAL (test code = 2229) 7.3 G/DL ALBUMIN (test code = 2201) 4.8 G/DL CALC GLOBULIN (test code = 2240) 2.5 G/DL CALC A/G RATIO (test code = 2234) 1.9 RATIO BILIRUBIN, TOTAL (test code = 2207) 0.4 MG/DL ALKALINE PHOSPHATASE (test code = 2204) 100 U/L AST (test code = 2218) 23 U/L ALT (test code = 2219) 32 U/L COMPREHENSIVE METABOLIC [id number] 00:00:00* Test Item Value Reference Range Interpretation Comme nts GLUCOSE (test code = 2217) 113 MG/DL BUN (test code = 2208) 17 MG/DL CREATININE (test code = 2214) 0.82 MG/DL eGFR AMER. (test cod e = 84380) 130 ML/MIN/1.73 eGFR NON- AMER. (test code = 84696) 112 ML/MIN/1.73 CALC BUN/CREAT (test code = 2235) 21 RATIO SODIUM (test code = 2231) 142 MEQ/L POTASSIUM (test code = 2228) 4.7 MEQ/L CHLORIDE (test code = 2215) 103 MEQ/L CARBON DIOXIDE (test code = 2206) 27 MEQ/L CALCIUM (test code = 2209) 9.5 MG/DL PROTEIN, TOTAL (test code = 2229) 6.9 G/DL ALBUMIN (test code = 2201) 4.8 G/DL CALC GLOBULIN (test code = 2240) 2.1 G/DL CALC A/G RATIO (test code = 2234) 2.3 RATIO BILIRUBIN, TOTAL (test code = 2207) 0.4 MG/DL ALKALINE PHOSPHATASE (test code = 2204) 78 U/L AST (test code = 2218) 18 U/L ALT (test code = 2219) 23 U/L LIPID [id number] 00:00:00* Test Item Value Reference Range Interpretation Comme nts CHOLESTEROL (test code = 2210) 159 MG/DL TRIGLYCERIDES (test code = 2232) 223 MG/DL HDL CHOLESTEROL (test code = 2220) 37 MG/DL CALC LDL CHOL (test code = 2237) 91 MG/DL RISK RATIO LDL/HDL (test cod e = 2238) 2.46 RATIO HEMOGLOBIN [id number] 00:00:00* Test Item Value Reference Range Interpretation Comme nts HEMOGLOBIN A1c (test code = 07453) 5.6 % LIPID [id number] 00:00:00* Test Item Value Reference Range Interpretation Comme nts CHOLESTEROL (test code = 2210) 159 MG/DL TRIGLYCERIDES (test code = 2232) 223 MG/DL HDL CHOLESTEROL (test code = 2220) 37 MG/DL CALC LDL CHOL (test code = 2237) 91 MG/DL RISK RATIO LDL/HDL (test cod e = 2238) 2.46 RATIO LIPID [id number] 00:00:00* Test Item Value Reference Range Interpretation Comme nts CHOLESTEROL (test code = 2210) 159 MG/DL TRIGLYCERIDES (test code = 2232) 223 MG/DL HDL CHOLESTEROL (test code = 2220) 37 MG/DL CALC LDL CHOL (test code = 2237) 91 MG/DL RISK RATIO LDL/HDL (test cod e = 2238) 2.46 RATIO HEMOGLOBIN [id number] 00:00:00* Test Item Value Reference Range Interpretation Comme nts HEMOGLOBIN A1c (test code = 29302) 5.6 % HEMOGLOBIN [id number] 00:00:00* Test Item Value Reference Range Interpretation Comme nts HEMOGLOBIN A1c (test code = 74984) 5.6 % HEMOGLOBIN [id number] 00:00:00* Test Item Value Reference Range Interpretation Comme nts HEMOGLOBIN A1c (test code = 77202) 5.6 % HEMOGLOBIN [id number] 00:00:00* Test Item Value Reference Range Interpretation Comme nts HEMOGLOBIN A1c (test code = 46308) 5.6 % COMPREHENSIVE METABOLIC [id number] 00:00:00* Test Item Value Reference Range Interpretation Comme nts GLUCOSE (test code = 2217) 113 MG/DL BUN (test code = 2208) 17 MG/DL CREATININE (test code = 2214) 0.82 MG/DL eGFR AMER. (test cod e = 19555) 130 ML/MIN/1.73 eGFR NON- AMER. (test code = 73738) 112 ML/MIN/1.73 CALC BUN/CREAT (test code = 2235) 21 RATIO SODIUM (test code = 2231) 142 MEQ/L POTASSIUM (test code = 2228) 4.7 MEQ/L CHLORIDE (test code = 2215) 103 MEQ/L CARBON DIOXIDE (test code = 2206) 27 MEQ/L CALCIUM (test code = 2209) 9.5 MG/DL PROTEIN, TOTAL (test code = 2229) 6.9 G/DL ALBUMIN (test code = 2201) 4.8 G/DL CALC GLOBULIN (test code = 2240) 2.1 G/DL CALC A/G RATIO (test code = 2234) 2.3 RATIO BILIRUBIN, TOTAL (test code = 2207) 0.4 MG/DL ALKALINE PHOSPHATASE (test code = 2204) 78 U/L AST (test code = 2218) 18 U/L ALT (test code = 2219) 23 U/L COMPREHENSIVE METABOLIC [id number] 00:00:00* Test Item Value Reference Range Interpretation Comme nts GLUCOSE (test code = 2217) 113 MG/DL BUN (test code = 2208) 17 MG/DL CREATININE (test code = 2214) 0.82 MG/DL eGFR AMER. (test cod e = 94441) 130 ML/MIN/1.73 eGFR NON- AMER. (test code = 88995) 112 ML/MIN/1.73 CALC BUN/CREAT (test code = 2235) 21 RATIO SODIUM (test code = 2231) 142 MEQ/L POTASSIUM (test code = 2228) 4.7 MEQ/L CHLORIDE (test code = 2215) 103 MEQ/L CARBON DIOXIDE (test code = 2206) 27 MEQ/L CALCIUM (test code = 2209) 9.5 MG/DL PROTEIN, TOTAL (test code = 2229) 6.9 G/DL ALBUMIN (test code = 2201) 4.8 G/DL CALC GLOBULIN (test code = 2240) 2.1 G/DL CALC A/G RATIO (test code = 2234) 2.3 RATIO BILIRUBIN, TOTAL (test code = 2207) 0.4 MG/DL ALKALINE PHOSPHATASE (test code = 2204) 78 U/L AST (test code = 2218) 18 U/L ALT (test code = 2219) 23 U/L COMPREHENSIVE METABOLIC [id number] 00:00:00* Test Item Value Reference Range Interpretation Comme nts GLUCOSE (test code = 2217) 113 MG/DL BUN (test code = 2208) 17 MG/DL CREATININE (test code = 2214) 0.82 MG/DL eGFR AMER. (test cod e = 65740) 130 ML/MIN/1.73 eGFR NON- AMER. (test code = 90523) 112 ML/MIN/1.73 CALC BUN/CREAT (test code = 2235) 21 RATIO SODIUM (test code = 2231) 142 MEQ/L POTASSIUM (test code = 2228) 4.7 MEQ/L CHLORIDE (test code = 2215) 103 MEQ/L CARBON DIOXIDE (test code = 2206) 27 MEQ/L CALCIUM (test code = 2209) 9.5 MG/DL PROTEIN, TOTAL (test code = 2229) 6.9 G/DL ALBUMIN (test code = 2201) 4.8 G/DL CALC GLOBULIN (test code = 2240) 2.1 G/DL CALC A/G RATIO (test code = 2234) 2.3 RATIO BILIRUBIN, TOTAL (test code = 2207) 0.4 MG/DL ALKALINE PHOSPHATASE (test code = 2204) 78 U/L AST (test code = 2218) 18 U/L ALT (test code = 2219) 23 U/L LIPID [id number] 00:00:00* Test Item Value Reference Range Interpretation Comme nts CHOLESTEROL (test code = 2210) 159 MG/DL TRIGLYCERIDES (test code = 2232) 223 MG/DL HDL CHOLESTEROL (test code = 2220) 37 MG/DL CALC LDL CHOL (test code = 2237) 91 MG/DL RISK RATIO LDL/HDL (test cod e = 2238) 2.46 RATIO LIPID [id number] 00:00:00* Test Item Value Reference Range Interpretation Comme nts CHOLESTEROL (test code = 2210) 159 MG/DL TRIGLYCERIDES (test code = 2232) 223 MG/DL HDL CHOLESTEROL (test code = 2220) 37 MG/DL CALC LDL CHOL (test code = 2237) 91 MG/DL RISK RATIO LDL/HDL (test cod e = 2238) 2.46 RATIO HEMOGLOBIN [id number] 00:00:00* Test Item Value Reference Range Interpretation Comme nts HEMOGLOBIN A1c (test code = 34775) 5.6 % HEMOGLOBIN [id number] 00:00:00* Test Item Value Reference Range Interpretation Comme nts HEMOGLOBIN A1c (test code = 17948) 5.6 % HEMOGLOBIN [id number] 00:00:00* Test Item Value Reference Range Interpretation Comme nts HEMOGLOBIN A1c (test code = 96743) 5.6 % COMPREHENSIVE METABOLIC [id number] 00:00:00* Test Item Value Reference Range Interpretation Comme nts GLUCOSE (test code = 2217) 113 MG/DL BUN (test code = 2208) 17 MG/DL CREATININE (test code = 2214) 0.82 MG/DL eGFR AMER. (test cod e = 67894) 130 ML/MIN/1.73 eGFR NON- AMER. (test code = 33764) 112 ML/MIN/1.73 CALC BUN/CREAT (test code = 2235) 21 RATIO SODIUM (test code = 2231) 142 MEQ/L POTASSIUM (test code = 2228) 4.7 MEQ/L CHLORIDE (test code = 2215) 103 MEQ/L CARBON DIOXIDE (test code = 2206) 27 MEQ/L CALCIUM (test code = 2209) 9.5 MG/DL PROTEIN, TOTAL (test code = 2229) 6.9 G/DL ALBUMIN (test code = 2201) 4.8 G/DL CALC GLOBULIN (test code = 2240) 2.1 G/DL CALC A/G RATIO (test code = 2234) 2.3 RATIO BILIRUBIN, TOTAL (test code = 2207) 0.4 MG/DL ALKALINE PHOSPHATASE (test code = 2204) 78 U/L AST (test code = 2218) 18 U/L ALT (test code = 2219) 23 U/L [id number] 00:00:00* Test Item Value Reference Range Interpretation Comme nts TSH (test code = 2821) 2.84 UIU/ML [id number] 00:00:00* Test Item Value Reference Range Interpretation Comme nts TSH (test code = 2821) 2.84 UIU/ML COMPREHENSIVE METABOLIC [id number] 00:00:00* Test Item Value Reference Range Interpretation Comme nts GLUCOSE (test code = 2217) 94 MG/DL BUN (test code = 2208) 18 MG/DL CREATININE (test code = 2214) 0.80 MG/DL eGFR AMER. (test cod e = 05101) 134 ML/MIN/1.73 eGFR NON- AMER. (test code = 55105) 116 ML/MIN/1.73 CALC BUN/CREAT (test code = 2235) 23 RATIO SODIUM (test code = 2231) 144 MEQ/L POTASSIUM (test code = 2228) 4.2 MEQ/L CHLORIDE (test code = 2215) 104 MEQ/L CARBON DIOXIDE (test code = 2206) 25 MEQ/L CALCIUM (test code = 2209) 9.4 MG/DL PROTEIN, TOTAL (test code = 2229) 7.2 G/DL ALBUMIN (test code = 2201) 4.8 G/DL CALC GLOBULIN (test code = 2240) 2.4 G/DL CALC A/G RATIO (test code = 2234) 2.0 RATIO BILIRUBIN, TOTAL (test code = 2207) 0.3 MG/DL ALKALINE PHOSPHATASE (test code = 2204) 66 U/L AST (test code = 2218) 18 U/L ALT (test code = 2219) 18 U/L COMPREHENSIVE METABOLIC [id number] 00:00:00* Test Item Value Reference Range Interpretation Comme nts GLUCOSE (test code = 2217) 94 MG/DL BUN (test code = 2208) 18 MG/DL CREATININE (test code = 2214) 0.80 MG/DL eGFR AMER. (test cod e = 53953) 134 ML/MIN/1.73 eGFR NON- AMER. (test code = 94173) 116 ML/MIN/1.73 CALC BUN/CREAT (test code = 2235) 23 RATIO SODIUM (test code = 2231) 144 MEQ/L POTASSIUM (test code = 2228) 4.2 MEQ/L CHLORIDE (test code = 2215) 104 MEQ/L CARBON DIOXIDE (test code = 2206) 25 MEQ/L CALCIUM (test code = 2209) 9.4 MG/DL PROTEIN, TOTAL (test code = 2229) 7.2 G/DL ALBUMIN (test code = 2201) 4.8 G/DL CALC GLOBULIN (test code = 2240) 2.4 G/DL CALC A/G RATIO (test code = 2234) 2.0 RATIO BILIRUBIN, TOTAL (test code = 2207) 0.3 MG/DL ALKALINE PHOSPHATASE (test code = 2204) 66 U/L AST (test code = 2218) 18 U/L ALT (test code = 2219) 18 U/L LIPID [id number] 00:00:00* Test Item Value Reference Range Interpretation Comme nts CHOLESTEROL (test code = 2210) 161 MG/DL TRIGLYCERIDES (test code = 2232) 240 MG/DL HDL CHOLESTEROL (test code = 2220) 45 MG/DL CALC LDL CHOL (test code = 2237) 68 MG/DL RISK RATIO LDL/HDL (test cod e = 2238) 1.51 RATIO LIPID [id number] 00:00:00* Test Item Value Reference Range Interpretation Comme nts CHOLESTEROL (test code = 2210) 161 MG/DL TRIGLYCERIDES (test code = 2232) 240 MG/DL HDL CHOLESTEROL (test code = 2220) 45 MG/DL CALC LDL CHOL (test code = 2237) 68 MG/DL RISK RATIO LDL/HDL (test cod e = 2238) 1.51 RATIO CBC W/AUTO [id number] 00:00:00* Test Item Value Reference Range Interpretation Comme nts WBC (test code = 1001) 6.7 K/UL RBC (test code = 1002) 4.71 M/UL HEMOGLOBIN (test code = 1003) 13.5 G/DL HEMATOCRIT (test code = 1004) 40.6 % MCV (test code = 1005) 86.2 fL MCH (test code = 1006) 28.7 PG MCHC (test code = 1007) 33.3 G/DL RDW (test code = 1038) 12.9 % NEUTROPHILS (test code = 1008) 58.7 % LYMPHOCYTES (test code = 1010) 30.1 % MONOCYTES (test code = 1011) 6.8 % EOSINOPHILS (test code = 1012) 4.0 % BASOPHILS (test code = 1013) 0.4 % PLATELET COUNT (test code = 1015) 149 K/UL CBC W/AUTO [id number] 00:00:00* Test Item Value Reference Range Interpretation Comme nts WBC (test code = 1001) 6.7 K/UL RBC (test code = 1002) 4.71 M/UL HEMOGLOBIN (test code = 1003) 13.5 G/DL HEMATOCRIT (test code = 1004) 40.6 % MCV (test code = 1005) 86.2 fL MCH (test code = 1006) 28.7 PG MCHC (test code = 1007) 33.3 G/DL RDW (test code = 1038) 12.9 % NEUTROPHILS (test code = 1008) 58.7 % LYMPHOCYTES (test code = 1010) 30.1 % MONOCYTES (test code = 1011) 6.8 % EOSINOPHILS (test code = 1012) 4.0 % BASOPHILS (test code = 1013) 0.4 % PLATELET COUNT (test code = 1015) 149 K/UL CBC W/AUTO [id number] 00:00:00* Test Item Value Reference Range Interpretation Comme nts WBC (test code = 1001) 6.7 K/UL RBC (test code = 1002) 4.71 M/UL HEMOGLOBIN (test code = 1003) 13.5 G/DL HEMATOCRIT (test code = 1004) 40.6 % MCV (test code = 1005) 86.2 fL MCH (test code = 1006) 28.7 PG MCHC (test code = 1007) 33.3 G/DL RDW (test code = 1038) 12.9 % NEUTROPHILS (test code = 1008) 58.7 % LYMPHOCYTES (test code = 1010) 30.1 % MONOCYTES (test code = 1011) 6.8 % EOSINOPHILS (test code = 1012) 4.0 % BASOPHILS (test code = 1013) 0.4 % PLATELET COUNT (test code = 1015) 149 K/UL CBC W/AUTO [id number] 00:00:00* Test Item Value Reference Range Interpretation Comme nts WBC (test code = 1001) 6.7 K/UL RBC (test code = 1002) 4.71 M/UL HEMOGLOBIN (test code = 1003) 13.5 G/DL HEMATOCRIT (test code = 1004) 40.6 % MCV (test code = 1005) 86.2 fL MCH (test code = 1006) 28.7 PG MCHC (test code = 1007) 33.3 G/DL RDW (test code = 1038) 12.9 % NEUTROPHILS (test code = 1008) 58.7 % LYMPHOCYTES (test code = 1010) 30.1 % MONOCYTES (test code = 1011) 6.8 % EOSINOPHILS (test code = 1012) 4.0 % BASOPHILS (test code = 1013) 0.4 % PLATELET COUNT (test code = 1015) 149 K/UL HEMOGLOBIN [id number] 00:00:00* Test Item Value Reference Range Interpretation Comme nts HEMOGLOBIN A1c (test code = 25636) 5.6 % HEMOGLOBIN [id number] 00:00:00* Test Item Value Reference Range Interpretation Comme nts HEMOGLOBIN A1c (test code = 90838) 5.6 % HEMOGLOBIN [id number] 00:00:00* Test Item Value Reference Range Interpretation Comme nts HEMOGLOBIN A1c (test code = 21436) 5.6 % HEMOGLOBIN [id number] 00:00:00* Test Item Value Reference Range Interpretation Comme nts HEMOGLOBIN A1c (test code = 11785) 5.6 % [id number] 00:00:00* Test Item Value Reference Range Interpretation Comme nts TSH (test code = 2821) 2.84 UIU/ML [id number] 00:00:00* Test Item Value Reference Range Interpretation Comme nts TSH (test code = 2821) 2.84 UIU/ML [id number] 00:00:00* Test Item Value Reference Range Interpretation Comme nts TSH (test code = 2821) 2.84 UIU/ML COMPREHENSIVE METABOLIC [id number] 00:00:00* Test Item Value Reference Range Interpretation Comme nts GLUCOSE (test code = 2217) 94 MG/DL BUN (test code = 2208) 18 MG/DL CREATININE (test code = 2214) 0.80 MG/DL eGFR AMER. (test cod e = 09440) 134 ML/MIN/1.73 eGFR NON- AMER. (test code = 44525) 116 ML/MIN/1.73 CALC BUN/CREAT (test code = 2235) 23 RATIO SODIUM (test code = 2231) 144 MEQ/L POTASSIUM (test code = 2228) 4.2 MEQ/L CHLORIDE (test code = 2215) 104 MEQ/L CARBON DIOXIDE (test code = 2206) 25 MEQ/L CALCIUM (test code = 2209) 9.4 MG/DL PROTEIN, TOTAL (test code = 2229) 7.2 G/DL ALBUMIN (test code = 2201) 4.8 G/DL CALC GLOBULIN (test code = 2240) 2.4 G/DL CALC A/G RATIO (test code = 2234) 2.0 RATIO BILIRUBIN, TOTAL (test code = 2207) 0.3 MG/DL ALKALINE PHOSPHATASE (test code = 2204) 66 U/L AST (test code = 2218) 18 U/L ALT (test code = 2219) 18 U/L COMPREHENSIVE METABOLIC [id number] 00:00:00* Test Item Value Reference Range Interpretation Comme nts GLUCOSE (test code = 2217) 94 MG/DL BUN (test code = 2208) 18 MG/DL CREATININE (test code = 2214) 0.80 MG/DL eGFR AMER. (test cod e = 82095) 134 ML/MIN/1.73 eGFR NON- AMER. (test code = 85973) 116 ML/MIN/1.73 CALC BUN/CREAT (test code = 2235) 23 RATIO SODIUM (test code = 2231) 144 MEQ/L POTASSIUM (test code = 2228) 4.2 MEQ/L CHLORIDE (test code = 2215) 104 MEQ/L CARBON DIOXIDE (test code = 2206) 25 MEQ/L CALCIUM (test code = 2209) 9.4 MG/DL PROTEIN, TOTAL (test code = 2229) 7.2 G/DL ALBUMIN (test code = 2201) 4.8 G/DL CALC GLOBULIN (test code = 2240) 2.4 G/DL CALC A/G RATIO (test code = 2234) 2.0 RATIO BILIRUBIN, TOTAL (test code = 2207) 0.3 MG/DL ALKALINE PHOSPHATASE (test code = 2204) 66 U/L AST (test code = 2218) 18 U/L ALT (test code = 2219) 18 U/L LIPID [id number] 00:00:00* Test Item Value Reference Range Interpretation Comme nts CHOLESTEROL (test code = 2210) 161 MG/DL TRIGLYCERIDES (test code = 2232) 240 MG/DL HDL CHOLESTEROL (test code = 2220) 45 MG/DL CALC LDL CHOL (test code = 2237) 68 MG/DL RISK RATIO LDL/HDL (test cod e = 2238) 1.51 RATIO LIPID [id number] 00:00:00* Test Item Value Reference Range Interpretation Comme nts CHOLESTEROL (test code = 2210) 161 MG/DL TRIGLYCERIDES (test code = 2232) 240 MG/DL HDL CHOLESTEROL (test code = 2220) 45 MG/DL CALC LDL CHOL (test code = 2237) 68 MG/DL RISK RATIO LDL/HDL (test cod e = 2238) 1.51 RATIO HEMOGLOBIN [id number] 00:00:00* Test Item Value Reference Range Interpretation Comme nts HEMOGLOBIN A1c (test code = 62898) 5.6 % [id number] 00:00:00* Test Item Value Reference Range Interpretation Comme nts TSH (test code = 2821) 2.84 UIU/ML [id number] 00:00:00* Test Item Value Reference Range Interpretation Comme nts TSH (test code = 2821) 2.84 UIU/ML COMPREHENSIVE METABOLIC [id number] 00:00:00* Test Item Value Reference Range Interpretation Comme nts GLUCOSE (test code = 2217) 94 MG/DL BUN (test code = 2208) 18 MG/DL CREATININE (test code = 2214) 0.80 MG/DL eGFR AMER. (test cod e = ) 134 ML/MIN/1.73 eGFR NON- AMER. (test code = ) 116 ML/MIN/1.73 CALC BUN/CREAT (test code = 2235) 23 RATIO SODIUM (test code = 2231) 144 MEQ/L POTASSIUM (test code = 2228) 4.2 MEQ/L CHLORIDE (test code = 2215) 104 MEQ/L CARBON DIOXIDE (test code = 2206) 25 MEQ/L CALCIUM (test code = 2209) 9.4 MG/DL PROTEIN, TOTAL (test code = 222) 7.2 G/DL ALBUMIN (test code = 2201) 4.8 G/DL CALC GLOBULIN (test code = 2240) 2.4 G/DL CALC A/G RATIO (test code = 2234) 2.0 RATIO BILIRUBIN, TOTAL (test code = 220) 0.3 MG/DL ALKALINE PHOSPHATASE (test code = 2204) 66 U/L AST (test code = 2218) 18 U/L ALT (test code = 2219) 18 U/L LIPID [id number] 00:00:00* Test Item Value Reference Range Interpretation Comme nts CHOLESTEROL (test code = 2210) 161 MG/DL TRIGLYCERIDES (test code = 2232) 240 MG/DL HDL CHOLESTEROL (test code = 2220) 45 MG/DL CALC LDL CHOL (test code = 2237) 68 MG/DL RISK RATIO LDL/HDL (test cod e = 2237) 1.51 RATIO CBC W/AUTO [id number] 00:00:00* Test Item Value Reference Range Interpretation Comme nts WBC (test code = 1001) 6.7 K/UL RBC (test code = 1002) 4.71 M/UL HEMOGLOBIN (test code = 1003) 13.5 G/DL HEMATOCRIT (test code = 1004) 40.6 % MCV (test code = 1005) 86.2 fL MCH (test code = 1006) 28.7 PG MCHC (test code = 1007) 33.3 G/DL RDW (test code = 1038) 12.9 % NEUTROPHILS (test code = 1008) 58.7 % LYMPHOCYTES (test code = 1010) 30.1 % MONOCYTES (test code = 1011) 6.8 % EOSINOPHILS (test code = 1012) 4.0 % BASOPHILS (test code = 1013) 0.4 % PLATELET COUNT (test code = 1015) 149 K/UL CBC W/AUTO [id number] 00:00:00* Test Item Value Reference Range Interpretation Comme nts WBC (test code = 1001) 6.7 K/UL RBC (test code = 1002) 4.71 M/UL HEMOGLOBIN (test code = 1003) 13.5 G/DL HEMATOCRIT (test code = 1004) 40.6 % MCV (test code = 1005) 86.2 fL MCH (test code = 1006) 28.7 PG MCHC (test code = 1007) 33.3 G/DL RDW (test code = 1038) 12.9 % NEUTROPHILS (test code = 1008) 58.7 % LYMPHOCYTES (test code = 1010) 30.1 % MONOCYTES (test code = 1011) 6.8 % EOSINOPHILS (test code = 1012) 4.0 % BASOPHILS (test code = 1013) 0.4 % PLATELET COUNT (test code = 1015) 149 K/UL CBC W/AUTO [id number] 00:00:00* Test Item Value Reference Range Interpretation Comme nts WBC (test code = 1001) 6.7 K/UL RBC (test code = 1002) 4.71 M/UL HEMOGLOBIN (test code = 1003) 13.5 G/DL HEMATOCRIT (test code = 1004) 40.6 % MCV (test code = 1005) 86.2 fL MCH (test code = 1006) 28.7 PG MCHC (test code = 1007) 33.3 G/DL RDW (test code = 1038) 12.9 % NEUTROPHILS (test code = 1008) 58.7 % LYMPHOCYTES (test code = 1010) 30.1 % MONOCYTES (test code = 1011) 6.8 % EOSINOPHILS (test code = 1012) 4.0 % BASOPHILS (test code = 1013) 0.4 % PLATELET COUNT (test code = 1015) 149 K/UL HEMOGLOBIN [id number] 00:00:00* Test Item Value Reference Range Interpretation Comme nts HEMOGLOBIN A1c (test code = 68851) 5.6 % HEMOGLOBIN [id number] 00:00:00* Test Item Value Reference Range Interpretation Comme nts HEMOGLOBIN A1c (test code = 94715) 5.6 % HEMOGLOBIN [id number] 00:00:00* Test Item Value Reference Range Interpretation Comme nts HEMOGLOBIN A1c (test code = 24716) 5.6 % [id number] 00:00:00* Test Item Value Reference Range Interpretation Comme nts TSH (test code = 2821) 2.84 UIU/ML CBC W/AUTO [id number] 00:00:00* Test Item Value Reference Range Interpretation Comme nts WBC (test code = 1001) 6.7 K/UL RBC (test code = 1002) 4.71 M/UL HEMOGLOBIN (test code = 1003) 13.5 G/DL HEMATOCRIT (test code = 1004) 40.6 % MCV (test code = 1005) 86.2 fL MCH (test code = 1006) 28.7 PG MCHC (test code = 1007) 33.3 G/DL RDW (test code = 1038) 12.9 % NEUTROPHILS (test code = 1008) 58.7 % LYMPHOCYTES (test code = 1010) 30.1 % MONOCYTES (test code = 1011) 6.8 % EOSINOPHILS (test code = 1012) 4.0 % BASOPHILS (test code = 1013) 0.4 % PLATELET COUNT (test code = 1015) 149 K/UL
[2023-06-23] MEDS ORDERED: IBUPROFEN 400 MG TAB ONE (08:57)
[2023-06-23] MEDS ORDERED: HYDROCODONE/APAP 7.5/325 MG TAB ONE (08:58)
--- NOTE | 2023-06-23 09:08 | RAD REPORT ---
EXAM DESCRIPTION: RAD - Hand Right 3 View - 06/23/2023 8:58 am CLINICAL HISTORY: PAIN COMPARISON: No comparisons FINDINGS/IMPRESSION: Fracture present at the proximal aspect of the second distal phalanx with intra -articular extension. There is at most 1-2 millimeters of displacement. Soft tissue swelling is prese nt.
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
[2023-06-23 13:56] VITALS: BP 154/94; TEMP 98.7; O2SAT 95
== END 2023-06-23 10:35 | disposition home or self-care (01) ==
LOC: ER 08:03
PROC: 2W3JX1Z Immobilization of Right Finger using Splint (ICD-10-PCS; principal; 2023-06-23)
DX: S62.612A Displaced fracture of proximal phalanx of right middle finger, initial encounter for closed fracture (principal)
CPT/HCPCS: 99283

== ENCOUNTER 2023-12-29 19:14 | Emergency (ER) | payer OTHER ==
--- OUTSIDE RECORDS SUMMARY | 2023-12-29 19:18 | XMS REPORT | Continuity of Care Document ---
Author Name Unknown Address [address] [facility] [address]. [address] [place], [place] [address] [place] [address] thconnect Address [address] [facility]. [address] [place] [address] Care Team Providers Care Streets [employer] Buildings Decorator Name Role Phone Cherie Monterroso Primary Care Physician [phone] BONY MEI Attending Clinician VERA Carlton Attending Clinician EMY Dennis Attending Clinician UnavailMAIKOL Troy Attending Clinician Unavailable Payers Payer Name Policy Type Policy Number Effective Date Expirati on Date Source [facility] ANNE [facility]IN[facility] [employer]AY FOCUS 9 [id number] 2023 00:00:00 Social History Social Habit Start Date Stop Date Quantity Comments Source History of tobacco use Chews Tobacco Elsie Ramos - External Sexual orientation Cade Ramos - External History of Social function 2023-11-07 00:00:00 2023-11-07 00:00:00 Elsie Ramos - External Tobacco use and exposure 2023-06-27 00:00:00 2023-06-27 00:00:00 User of smokeless tobacco Elsie Ramos - External Sex assigned at 1980 00:00:00 1980 00:00:00 Elsie Camacho External Smoking Status Start Date Stop Date Source Ex-smoker 2023-06-27 00:00:00 2023-06-27 00:00:00 Cade Ramos - External Medications Ordered Medication Name Filled Medication Name Start Date Stop Date Current Medication? Ordering Clinician Indication Dosage Frequency Signature (SIG) Comments Components Source LISINOPRIL- HCTZ 10-12.5 MG oral Tablet - 00:00: 00 Yes [id number] 1{tbl} QD Take 1 tablet by mouth daily. Elsie sarah Methylpredn isolone Acetate (Depo-Medro l) 40 mg/ml - Physician Administere d (J1030) 08-06 19:15: 00 08-06 22:48 :00 No [id number] 40mg 40 mg, Physician Administer ed, ONCE, 1 dose, On Sun08/07/23 at 1415 Elsie sarah HYDROcodone -Acetaminop hen ([place]) 5-325 MG oral Tablet 08-05 00:00: 00 Yes [id number] 1{tbl} Q.25D Take 1 tablet by mouth every 6 hours as needed for pain. Elsie sarah HYDROcodone -Acetaminop hen ([place]) 5-325 MG oral Tablet 10 00:00: 00 Yes [id number] 1{tbl} Q.25D Take 1 tablet by mouth every 6 hours as needed for pain. Elsie sarah Ibuprofen (MOTRIN) 600 MG oral Tablet 06 00:00: 00 Yes TAKE 1 TABLET BY MOUTH EVERY 6 HOURS WITH FOOD NEEDED FOR PAIN Elsie sarah Dose Unknown 2021-03 2-14 00:00: 00 No Dose Unknown 8 00:00: 00 No Dose Unknown 2020-03 2-16 00:00: 00 No lisinopril 20 mg tablet 2020-03 2-16 00:00: 00 No 1mg lisinopril 20 mg tablet 07-13 00:00: 00 No 1mg Celebrex 200 mg capsule 07-13 00:00: 00 No 1mg lisinopril 20 mg tablet 07-13 00:00: 00 No 1mg Celebrex 200 mg capsule 07-13 00:00: 00 No 1mg lisinopril 20 mg tablet 07-03 00:00: 00 No 1mg lisinopril 20 mg tablet 07-03 00:00: 00 No 1mg lisinopril 20 mg tablet 06-05 00:00: 00 No 1mg lisinopril 20 mg tablet 06-05 00:00: 00 No 1mg cyclobenzap rine 10 mg tablet 05-29 00:00: 00 No 1mg cyclobenzap rine 10 mg tablet 05-29 00:00: 00 No 1mg cyclobenzap rine 10 mg tablet 2017-03 00:00: 00 No 1mg cyclobenzap rine 10 mg tablet 2017-03 00:00: 00 No 1mg prednisone 10 mg [...] Observation Time Observation Value Comments S ource Systolic blood pressure 2023-11-07 21:21:00 150 mm[Hg] Elsie Seybo ld - External Diastolic blood pressure 2023-11-07 21:21:00 82 mm[Hg] Elsie Seybo ld - External Heart rate 2023-11-07 21:21:00 86 /min Kel y Seybold - External Body temperature 2023-11-07 21:21:00 37 Tahira Elsie Seybold - External Respiratory rate 2023-11-07 21:21:00 20 /min Elsie Clemensybold - External Body height 2023-11-07 21:21:00 180.3 cm Mary yeh Seybold - External Body weight 2023-11-07 21:21:00 111.585 kg Mary ey Seybold - External BMI 2023-11-07 21:21:00 34.31 kg/m2 Maryjeniffer yeh Seybold - External Oxygen saturation in Arterial blood by Pulse oximetry 2023-11-07 21:21:00 97 /min Elsieadore Chandra ld - External Body height 2023-08-07 19:24:00 180.3 cm Mary ey Seybold - External Body weight 2023-08-07 19:24:00 104.327 kg Mary ey Seybold - External BMI 2023-08-07 19:24:00 32.08 kg/m2 Mary ey Seybold - External Body height 2023-06-27 16:55:00 180.3 cm Mary ey Seybold - External Body weight 2023-06-27 16:55:00 104.327 kg Mary ey Seybold - External BMI 2023-06-27 16:55:00 32.08 kg/m2 Mary ey Seybold - External BP Systolic 2022-02-24 08:18:00 144 mm[Hg] BP [...] Goal Plan of Care Note [code = 37236-9] Goal Plan of Care Note [code = 56728-8] Goal Plan of Care Note [code = 29854-6] Goal Plan of Care Note [code = 66393-3] Goal Plan of Care Note [code = 33566-3] Goal Plan of Care Note [code = 22537-4] Goal Plan of Care Note [code = 47199-0] Goal Plan of Care Note [code = 19210-7] Goal Plan of Care Note [code = 88874-8] Goal Plan of Care Note [code = 39106-7] Goal Plan of Care Note [code = 14991-3] Goal Plan of Care Note [code = 29698-2] Goal Plan of Care Note [code = 97684-6] Goal Plan of Care Note [code = 09792-4] Goal Plan of Care Note [code = 51164-2] Goal Plan of Care Note [code = 34321-0] Goal Plan of Care Note [code = 78577-0] Goal Plan of Care Note [code = 14845-7] Goal Plan of Care Note [code = 95994-9] Goal Plan of Care Note [code = 86288-2] Goal Plan of Care Note [code = 15192-6] Goal Plan of Care Note [code = 56575-6] Goal Plan of Care Note [code = 44898-0] Goal Plan of Care Note [code = 91423-0] Goal Plan of Care Note [code = 71288-5] Goal Plan of Care Note [code = 40140-7] Goal Plan of Care Note [code = 84355-0] Goal Plan of Care Note [code = 07411-5] Goal Plan of Care Note [code = 59274-0] Goal Plan of Care Note [code = 47796-1] Goal Plan of Care Note [code = 20996-0] Goal Plan of Care Note [code = 21952-8] Goal Plan of Care Note [code = 01377-8] Goal Plan of Care Note [code = 89728-9] Goal Plan of Care Note [code = 53470-8] Goal Plan of Care Note [code = 08866-3] Goal Plan of Care Note [code = 01827-3] Goal Plan of Care Note [code = 96679-8] Goal Plan of Care Note [code = 64646-8] Goal Plan of Care Note [code = 37043-0] Goal Plan of Care Note [code = 65175-8] Goal Plan of Care Note [code = 98405-6] Goal Plan of Care Note [code = 71052-8] Goal Plan of Care Note [code = 99211-2] Goal Plan of Care Note [code = 86858-5] Goal Plan of Care Note [code = 21465-9] Goal Plan of Care Note [code = 88546-9] Goal Plan of Care Note [code = 54269-8] Goal Plan of Care Note [code = 59037-4] Goal Plan of Care Note [code = 01867-8] Goal Plan of Care Note [code = 48800-0] Encounters Start Date/Time End Date/Time Encounter Type Admission Type Attending Clinicians Care Facility Care Department Encounter ID Source 2023-11-27 10:30:00 2023-11-27 10:30:00 Outpatient BONY MEI [id number] Elsie Ramos 2023-11-07 16:30:00 2023-11-07 16:30:00 Outpatient VERA SALINAS [facility]SIE RAM[facility] [id number] [facility] 13:20:00 2023-09-24 13:20:00 Outpatient EMY HONG [id number] [facility] 2023-09-04 00:00:00 2023-09-04 00:00:00 Outpatient EMY HONG [id number] [facility] 2023-08-07 14:00:00 2023-08-07 14:00:00 Outpatient ЕЛЕНА MAIKOLJONG RAMÍREZ [id number] [facility] 2023-08-07 13:35:00 2023-08-07 13:35:00 Outpatient ELSIE RAMÍREZ [id number] [facility] 2023-08-06 14:10:00 2023-08-06 14:10:00 Outpatient EMY HONG [id number] [facility] 2023-08-06 13:25:00 2023-08-06 13:25:00 Outpatient ELSIE RAMÍREZ [id number] [facility] 2023-08-06 00:00:00 2023-08-06 00:00:00 Outpatient MAIKOL CHRISTINASEN ELSIE RAMÍREZ [id number] [facility] 2023-07-31 00:00:00 2023-07-31 00:00:00 Outpatient EMY HONG [id number] [facility] 2023-06-27 11:10:00 2023-06-27 11:10:00 Outpatient EMY HONG [id number] Elsie [facility] 2023-06-25 00:00:00 2023-06-25 00:00:00 Outpatient EMY HONG [id number] Elsie [facility] 2022-03-31 15:42:03 2022-03-31 15:42:03 Outpatient SFA SFA [id number] Kade Hay 2022-03-11 09:32:29 2022-03-11 09:32:29 Outpatient SFA SFA 1224 Kade Hay 2022-03-10 00:00:00 2022-03-10 00:00:00 Outpatient Visit [id number] 2022-02-24 08:08:12 2022-02-24 08:08:12 Outpatient SFA [facility] [id number] 1209 Kade Hay 2022-02-24 00:00:00 2022-02-24 00:00:00 Outpatient Visit [id number] 2021-10-21 00:00:00 2021-10-21 00:00:00 Outpatient Visit [id number] Results Test Description Test Time Test Comments Results Result Co mments Source VITAMIN [id number] 06:50:56* Test Item Value Reference Range Interpretation Comme nts VITAMIN B-12 (test code = 2840) 439 PG/ML 200-950 TSH, THIRD [id number] 06:50:56* Test Item Value Reference Range Interpretation Comme nts TSH, THIRD GENERATION (test code = 2821) 2.300 UIU/ML 0.400-4.100 SEDIMENTATION [id number] 04:43:36* Test Item Value Reference Range Interpretation Comme nts SEDIMENTATION RATE (test cod e = 1017) 5 MM/HOUR 0-15 C-REACTIVE [id number] 03:42:32* Test Item Value Reference Range Interpretation Comme nts C-REACTIVE PROTEIN (test code = 3513) <0.3 MG/DL <0.5 UNLESS OTHERW ISE INDICATED, ALL TESTING PERFORMED [facility] [address] [place] [address] MOLD BUNCH TRIMMER: CESAR BAUER M.D. CLIA NUMBER [id number] [facility] [place]. [id number] COMPREHENSIVE METABOLIC [id number] 03:41:56* Test Item Value Reference Range Interpretation [...] 142 MEQ/L 133-146 POTASSIUM (test code = 222) 4.2 MEQ/L 3.5-5.4 CHLORIDE (test code = 5) 104 MEQ/L 95-107 CARBON DIOXIDE (test code = 6) 29 MEQ/L 19-31 CALCIUM (test code = [...] 80 U/L 40-119 AST (test code = 2218) 17 U/L 9-50 ALT (test code = 2219) 24 U/L 5-50 HEMOGLOBIN [id number] 14:02:09* Test Item Value Reference Range Interpretation Comme nts HEMOGLOBIN A1c (test code = 88955) 5.5 % 4.2-5.6 UNLESS OTHERWISE INDICATED, ALL TESTING PERFORMED [facility] [address] [place] [address] MOLD BUNCH TRIMMER: Emely SHELTONIA NUMBER [id number] [facility] [place]. [id number] LIPID [id number] 04:41:30* Test Item Value Reference Range Interpretation [...] SPECIMENS. FOR MOREINFORMATION, SEE CLIENT ANNOUNCEMENT AT [email or web address] RISK RATIO LDL/HDL (test code = 2238) 2.26 RATIO <3.55 COMPREHENSIVE METABOLIC [id number] 04:41:30* Test Item Value Reference Range Interpretation Comme nts GLUCOSE (test code = 2217) 102 MG/DL 70-99 H BUN (test code = 8) 19 MG/DL 6-20 CREATININE (test code = 2214) 0.95 MG/DL 0.80-1.40 eGFR (2020 CKD-EPI) (test code = 11111) 104 ML/MIN/1.73 >60 CALC BUN/CREAT (test code = 2235) 20 RATIO 6-28 SODIUM (test code = 223) 143 MEQ/L 133-146 POTASSIUM (test code = 2228) 4.3 MEQ/L 3.5-5.4 CHLORIDE (test code = 2215) 104 MEQ/L 95-107 CARBON DIOXIDE (test code = 2206) 27 MEQ/L 19-31 CALCIUM (test code = 2209) 9.6 MG/DL 8.5-10.5 PROTEIN, TOTAL (test code = 2229) 7.1 G/DL 6.1-8.3 ALBUMIN (test code = 2201) 4.8 G/DL 3.5-5.2 CALC GLOBULIN (test code = 2240) 2.3 G/DL 1.9-3.7 CALC A/G RATIO (test code = 2234) 2.1 RATIO 1.0-2.6 BILIRUBIN, TOTAL (test code = 2207) 0.6 MG/DL See_Comment [Automated me ssage] The system which generated this result transmitted reference range: <=1.2. The reference range was not used to interpret this result as normal/abnormal. ALKALINE PHOSPHATASE (test code = 2204) 73 U/L 40-117 AST (test code = 2218) 18 U/L 9-50 ALT (test code = 2219) 25 U/L 5-50 UNLESS OTHERWISE INDICATED, ALL TESTING PERFORMED [facility] [address] [place] [address] MOLD BUNCH TRIMMER: CESAR BAUER M.D. CLIA NUMBER [id number] [facility] [place]. [id number] LIPID [id number] 00:00:00* Test Item Value Reference Range Interpretation Comme nts CHOLESTEROL (test code = 2210) 152 MG/DL TRIGLYCERIDES (test code = 2232) 149 MG/DL HDL CHOLESTEROL (test code = 2220) 39 MG/DL CALC LDL CHOL (test code = 2237) 88 MG/DL RISK RATIO LDL/HDL (test cod e = 2238) 2.26 RATIO COMPREHENSIVE METABOLIC [id number] 00:00:00* Test Item Value Reference Range Interpretation Comme nts GLUCOSE (test code = 2217) 102 MG/DL BUN (test code = 2208) 19 MG/DL CREATININE (test code = 2214) 0.95 MG/DL eGFR (2020 CKD-EPI) (test code = 89640) 104 ML/MIN/1.73 CALC BUN/CREAT (test code = [...] (test code = 2219) 25 U/L LIPID [id number] 00:00:00* Test Item Value Reference Range Interpretation Comme nts CHOLESTEROL (test code = 2210) 152 MG/DL TRIGLYCERIDES (test code = 2232) 149 MG/DL HDL CHOLESTEROL (test code = 2220) 39 MG/DL CALC LDL CHOL (test code = 2237) 88 MG/DL RISK RATIO LDL/HDL (test cod e = 2238) 2.26 RATIO COMPREHENSIVE METABOLIC [id number] 00:00:00* Test Item Value Reference Range Interpretation Comme nts GLUCOSE (test code = 2217) 102 MG/DL BUN (test code = 2208) 19 MG/DL CREATININE (test code = 2214) 0.95 MG/DL eGFR (2020 CKD-EPI) (test code = 81701) 104 ML/MIN/1.73 CALC BUN/CREAT (test code = [...] (test code = 2219) 25 U/L PSA, [id number] 05:29:41* Test Item Value Reference Range Interpretation Comme nts PSA, TOTAL (test code = 2606) 0.32 NG/ML See_Comment NOTE: Methodolog y is Gill Evelina Electrochemiluminescence Immunoassay traceable to WHO reference standard 96/760. UNLESS OTHERWISE INDICATED, ALL TESTING PERFORMED [facility] [address] [place] [address] MOLD BUNCH TRIMMER: CESAR BAUER M.D. CLIA NUMBER [id number] [place] [id number] [Automated message] The system which generated this result transmitted reference range: <=4.00. The reference range was not used to interpret this result as normal/abnormal. LIPID [id number] 03:50:33* Test Item Value Reference Range Interpretation [...] SPECIMENS. FOR MOREINFORMATION, SEE CLIENT ANNOUNCEMENT AT [email or web address] RISK RATIO LDL/HDL (test code = 2238) 2.35 RATIO <3.55 COMPREHENSIVE METABOLIC [id number] 03:50:33* Test Item Value Reference Range Interpretation Comme nts GLUCOSE (test code = 2217) 107 MG/DL 70-99 H BUN (test code = 2208) 21 MG/DL 6-20 H CREATININE (test code = 2214) 0.93 MG/DL 0.80-1.40 EFFECTIVE 02/28/2021, [facility] HAS IMPLEMENTED THE NKF-ASN RECOMMENDED KD-EPI EGFR REFIT CALCULATION THAT DOES NOT INCLUDE A COEFFICIENT FORRACE. FOR MORE INFORMATION, SEE ANNOUNCEMENT [email or web address] eGFR (2020 CKD-EPI) (test code = 74977) 106 ML/MIN/1.73 >60 CALC BUN/CREAT (test code = 2235) 23 RATIO 6-28 SODIUM (test code = 223) 145 MEQ/L 133-146 POTASSIUM (test code = 2228) 4.6 MEQ/L 3.5-5.4 CHLORIDE (test code = 2215) 107 MEQ/L 95-107 CARBON DIOXIDE (test code = 2206) 26 MEQ/L 19-31 CALCIUM (test code = 2208) 9.5 MG/DL 8.5-10.5 PROTEIN, TOTAL (test code = 2229) 7.3 G/DL 6.1-8.3 ALBUMIN (test code = 2201) 4.8 G/DL 3.5-5.2 CALC GLOBULIN (test code = 2240) 2.5 G/DL 1.9-3.7 CALC A/G RATIO (test code = 2234) 1.9 RATIO 1.0-2.6 BILIRUBIN, TOTAL (test code = 2207) 0.4 MG/DL See_Comment [Automated me ssage] The system which generated this result transmitted reference range: <=1.2. The reference range was not used to interpret this result as normal/abnormal. ALKALINE PHOSPHATASE (test code = 4) 100 U/L 40-117 AST (test code = 2218) 23 U/L 9-50 ALT (test code = 2219) 32 U/L 5-50 CBC W/AUTO DIFF WITH [id number] 03:49:19* Test Item Value Reference Range Interpretation [...] DIFFERENTIAL WILL BE ELIMINATED REDUNDANT TOABSOLUTE COUNTS.SEE [email or web address] te LYMPHOCYTES (test code = 1010) [...] 0.00-0.10 ABS NUCLEATED RBCS (test code = 28994) 0.00 K/UL 0.00-0.11 CBC W/AUTO [id number] 00:00:00* Test Item Value Reference Range Interpretation [...] ABS NUCLEATED RBCS (test cod e = 02865) 0.00 K/UL LIPID [id number] 00:00:00* Test Item Value Reference Range Interpretation Comme nts CHOLESTEROL (test code = 2210) 133 MG/DL TRIGLYCERIDES (test code = 2232) 108 MG/DL HDL CHOLESTEROL (test code = 2220) 34 MG/DL CALC LDL CHOL (test code = 2237) 80 MG/DL RISK RATIO LDL/HDL (test cod e = 2238) 2.35 RATIO COMPREHENSIVE METABOLIC [id number] 00:00:00* Test Item Value Reference Range Interpretation Comme nts GLUCOSE (test code = 2217) 107 MG/DL BUN (test code = 2208) 21 MG/DL CREATININE (test code = 2214) 0.93 MG/DL eGFR (2020 CKD-EPI) (test code = 33254) 106 ML/MIN/1.73 CALC BUN/CREAT (test code = [...] (test code = 2219) 32 U/L PSA, [id number] 00:00:00* Test Item Value Reference Range Interpretation Comme nts PSA, TOTAL (test code = 2606) 0.32 NG/ML CBC W/AUTO [id number] 00:00:00* Test Item Value Reference Range Interpretation [...] ABS NUCLEATED RBCS (test cod e = 19683) 0.00 K/UL CBC W/AUTO [id number] 00:00:00* Test Item Value Reference Range Interpretation [...] ABS NUCLEATED RBCS (test cod e = 78192) 0.00 K/UL LIPID [id number] 00:00:00* Test Item Value Reference Range Interpretation Comme nts CHOLESTEROL (test code = 2210) 133 MG/DL TRIGLYCERIDES (test code = 2232) 108 MG/DL HDL CHOLESTEROL (test code = 2220) 34 MG/DL CALC LDL CHOL (test code = 2237) 80 MG/DL RISK RATIO LDL/HDL (test cod e = 2238) 2.35 RATIO COMPREHENSIVE METABOLIC [id number] 00:00:00* Test Item Value Reference Range Interpretation Comme nts GLUCOSE (test code = 2217) 107 MG/DL BUN (test code = 2208) 21 MG/DL CREATININE (test code = 2214) 0.93 MG/DL eGFR (2020 CKD-EPI) (test code = 76494) 106 ML/MIN/1.73 CALC BUN/CREAT (test code = [...] (test code = 2219) 32 U/L LIPID [id number] 00:00:00* Test Item Value Reference Range Interpretation Comme nts CHOLESTEROL (test code = 2210) 133 MG/DL TRIGLYCERIDES (test code = 2232) 108 MG/DL HDL CHOLESTEROL (test code = 2220) 34 MG/DL CALC LDL CHOL (test code = 2237) 80 MG/DL RISK RATIO LDL/HDL (test cod e = 2238) 2.35 RATIO PSA, [id number] 00:00:00* Test Item Value Reference Range Interpretation Comme nts PSA, TOTAL (test code = 2606) 0.32 NG/ML COMPREHENSIVE METABOLIC [id number] 00:00:00* Test Item Value Reference Range Interpretation Comme nts GLUCOSE (test code = 2217) 107 MG/DL BUN (test code = 2208) 21 MG/DL CREATININE (test code = 2214) 0.93 MG/DL eGFR (2020 CKD-EPI) (test code = 73418) 106 ML/MIN/1.73 CALC BUN/CREAT (test code = [...] (test code = 2219) 32 U/L PSA, [id number] 00:00:00* Test Item Value Reference Range Interpretation Comme nts PSA, TOTAL (test code = 2606) 0.32 NG/ML LIPID [id number] 00:00:00* Test Item Value Reference Range Interpretation Comme nts CHOLESTEROL (test code = 2210) 159 MG/DL TRIGLYCERIDES (test code = 2232) 223 MG/DL HDL CHOLESTEROL (test code = 2220) 37 MG/DL CALC LDL CHOL (test code = 2237) 91 MG/DL RISK RATIO LDL/HDL (test cod e = 2238) 2.46 RATIO HEMOGLOBIN [id number] 00:00:00* Test Item Value Reference Range Interpretation Comme nts HEMOGLOBIN A1c (test code = 34105) 5.6 % COMPREHENSIVE METABOLIC [id number] 00:00:00* Test Item Value Reference Range Interpretation Comme nts GLUCOSE (test code = 2217) 113 MG/DL BUN (test code = 2208) 17 MG/DL CREATININE (test code = 2214) 0.82 MG/DL eGFR AMER. (test cod e = 26726) 130 ML/MIN/1.73 eGFR NON- AMER. (test code = 32752) 112 ML/MIN/1.73 CALC BUN/CREAT (test code = [...] (test code = 2219) 23 U/L LIPID [id number] 00:00:00* Test Item Value Reference Range Interpretation Comme nts CHOLESTEROL (test code = 2210) 159 MG/DL TRIGLYCERIDES (test code = 2232) 223 MG/DL HDL CHOLESTEROL (test code = 2220) 37 MG/DL CALC LDL CHOL (test code = 2237) 91 MG/DL RISK RATIO LDL/HDL (test cod e = 2238) 2.46 RATIO HEMOGLOBIN [id number] 00:00:00* Test Item Value Reference Range Interpretation Comme nts HEMOGLOBIN A1c (test code = 71299) 5.6 % LIPID [id number] 00:00:00* Test Item Value Reference Range Interpretation Comme nts CHOLESTEROL (test code = 2210) 159 MG/DL TRIGLYCERIDES (test code = 2232) 223 MG/DL HDL CHOLESTEROL (test code = 2220) 37 MG/DL CALC LDL CHOL (test code = 2237) 91 MG/DL RISK RATIO LDL/HDL (test cod e = 2238) 2.46 RATIO HEMOGLOBIN [id number] 00:00:00* Test Item Value Reference Range Interpretation Comme nts HEMOGLOBIN A1c (test code = 19006) 5.6 % COMPREHENSIVE METABOLIC [id number] 00:00:00* Test Item Value Reference Range Interpretation Comme nts GLUCOSE (test code = 2216) 113 MG/DL BUN (test code = 2208) 17 MG/DL CREATININE (test code = 2214) 0.82 MG/DL eGFR AMER. (test cod e = 06868) 130 ML/MIN/1.73 eGFR NON- AMER. (test code = 66123) 112 ML/MIN/1.73 CALC BUN/CREAT (test code = [...] code = 2219) 23 U/L COMPREHENSIVE METABOLIC [id number] 00:00:00* Test Item Value Reference Range Interpretation Comme nts GLUCOSE (test code = 2217) 113 MG/DL BUN (test code = 2208) 17 MG/DL CREATININE (test code = 2214) 0.82 MG/DL eGFR AMER. (test cod e = 58225) 130 ML/MIN/1.73 eGFR NON- AMER. (test code = 77770) 112 ML/MIN/1.73 CALC BUN/CREAT (test code = [...] ALT (test code = 2219) 23 U/L CBC W/AUTO [id number] 00:00:00* Test Item Value Reference Range Interpretation [...] (test code = 1015) 149 K/UL HEMOGLOBIN [id number] 00:00:00* Test Item Value Reference Range Interpretation Comme nts HEMOGLOBIN A1c (test code = 51541) 5.6 % [id number] 00:00:00* Test Item Value Reference Range Interpretation Comme nts TSH (test code = 2821) 2.84 UIU/ML CBC W/AUTO [id number] 00:00:00* Test Item Value Reference Range Interpretation [...] COUNT (test code = 1015) 149 K/UL COMPREHENSIVE METABOLIC [id number] 00:00:00* Test Item Value Reference Range Interpretation Comme nts GLUCOSE (test code = 2217) 94 MG/DL BUN (test code = 2208) 18 MG/DL CREATININE (test code = 2214) 0.80 MG/DL eGFR AMER. (test cod e = 43019) 134 ML/MIN/1.73 eGFR NON- AMER. (test code = 60209) 116 ML/MIN/1.73 CALC BUN/CREAT (test code = [...] (test code = 2219) 18 U/L LIPID [id number] 00:00:00* Test Item Value Reference Range Interpretation Comme nts CHOLESTEROL (test code = 2210) 161 MG/DL TRIGLYCERIDES (test code = 2232) 240 MG/DL HDL CHOLESTEROL (test code = 2220) 45 MG/DL CALC LDL CHOL (test code = 2237) 68 MG/DL RISK RATIO LDL/HDL (test cod e = 2238) 1.51 RATIO CBC W/AUTO [id number] 00:00:00* Test Item Value Reference Range Interpretation [...] (test code = 1015) 149 K/UL HEMOGLOBIN [id number] 00:00:00* Test Item Value Reference Range Interpretation Comme nts HEMOGLOBIN A1c (test code = 81032) 5.6 % HEMOGLOBIN [id number] 00:00:00* Test Item Value Reference Range Interpretation Comme nts HEMOGLOBIN A1c (test code = 63509) 5.6 % [id number] 00:00:00* Test Item Value Reference Range Interpretation Comme nts TSH (test code = 2821) 2.84 UIU/ML COMPREHENSIVE METABOLIC [id number] 00:00:00* Test Item Value Reference Range Interpretation Comme nts GLUCOSE (test code = 2217) 94 MG/DL BUN (test code = 2208) 18 MG/DL CREATININE (test code = 2214) 0.80 MG/DL eGFR AMER. (test cod e = 85729) 134 ML/MIN/1.73 eGFR NON- AMER. (test code = 56676) 116 ML/MIN/1.73 CALC BUN/CREAT (test code = [...] (test code = 2219) 18 U/L LIPID [id number] 00:00:00* Test Item Value Reference Range Interpretation Comme nts CHOLESTEROL (test code = 2210) 161 MG/DL TRIGLYCERIDES (test code = 2232) 240 MG/DL HDL CHOLESTEROL (test code = 2220) 45 MG/DL CALC LDL CHOL (test code = 2237) 68 MG/DL RISK RATIO LDL/HDL (test cod e = 2238) 1.51 RATIO [id number] 00:00:00* Test Item Value Reference Range Interpretation Comme nts TSH (test code = 2821) 2.84 UIU/ML COMPREHENSIVE METABOLIC [id number] 00:00:00* Test Item Value Reference Range Interpretation Comme nts GLUCOSE (test code = 2217) 94 MG/DL BUN (test code = 2208) 18 MG/DL CREATININE (test code = 2214) 0.80 MG/DL eGFR AMER. (test cod e = 56053) 134 ML/MIN/1.73 eGFR NON- AMER. (test code = 97251) 116 ML/MIN/1.73 CALC BUN/CREAT (test code = [...] (test code = 2219) 18 U/L LIPID [id number] 00:00:00* Test Item Value Reference Range Interpretation Comme nts CHOLESTEROL (test code = 2210) 161 MG/DL TRIGLYCERIDES (test code = 2232) 240 MG/DL HDL CHOLESTEROL (test code = 2220) 45 MG/DL CALC LDL CHOL (test code = 2237) 68 MG/DL RISK RATIO LDL/HDL (test cod e = 2238) 1.51 RATIO Notes Date/Time Note Provider Source 2023-08-07 14:24:53 Chief Complaint Patient presents with Knee Pain 43 year old male here today for bilateral knee pain R>L pain started for many years ago but recently past 2 months pain has increased and locking is occurring Brittney Poole CMA I [facility] 2023-08-06 13:37:04 Chief Complaint Patient presents with Finger Injury Closed displaced fracture of distal phalanx of right index finger DOI: 06/23/23 RHD Isela Carrasquillo MA II [facility] 2023-06-27 11:58:17 Chief Complaint Patient presents with Finger Injury Right index finger injury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
--- NOTE | 2023-12-29 19:28 | EDPHYS ---
Physician Documentation [facility] Name: Constantino Montes De Oca Age: 43 yrs Sex: Male : 1980 Arrival Date: 12/29/2023 Time: 19:14 Bed 6 Private MD: Yazan Mahajan HPI: 12/28 19:58 This 43 yrs old Male presents to ER via Ambulatory with complaints of poison sb4 julia. 19:58 The patient's rash thought to be caused by Contact allergy. The rash is located on the sb4 left arm and right arm and back of neck. The rash can be described as erythematous, macular, raised. Onset: The symptoms/episode began/occurred 5 day(s) ago. Associated signs and symptoms: Pertinent positives: itching, Pertinent negatives: swelling of lips, swelling of throat, swelling of tongue. Treatment given at home: Benadryl, OTC lotion/cream. The patient has not experienced similar symptoms in the past. The patient has not recently seen a physician. Historical: - Allergies: 19:29 No Known Allergies; cm10 - PMHx: 19:29 Back pain; Borderline Diabetes; Hypertensive disorder; cm10 - Immunization history:: Adult Immunizations up to date. - Infectious Disease History:: Denies. - Social history:: Smoking status: Patient reports use of chewing tobacco. ROS: 19:58 Constitutional: Negative for fever, chills, and weight loss, sb4 19:58 Skin: Positive for rash, of the right arm and back of neck and head and left arm, 19:58 All other systems are negative, Exam: 19:58 Constitutional: This is a well developed, well nourished patient who is awake, alert, sb4 and in no acute distress. Head/Face: Normocephalic, atraumatic. Eyes: Extra-ocular motions intact. Periorbital areas with no swelling, redness, or edema. ENT: Mucous membranes moist. 19:58 Skin: rash a mild rash is noted, contact dermatitis, on the left arm and back of neck and head and right arm, Vital Signs: 19:28 BP 150 / 83; Pulse 83; Resp 16; Temp 98.6; Pulse Ox 100% ; Weight 104.33 kg; Height 5 cm10 ft. 11 in. ; Pain 0/10; 19:28 Body Mass Index 32.08 (104.33 kg, 180.34 cm) cm10 19:28 Pain Scale: Adult cm10 MDM: 19:27 Patient medically screened. sb4 19:58 Data reviewed: vital signs, nurses notes, and as a result, I will discharge patient. sb4 Counseling: I had a detailed discussion with the patient and/or guardian regarding the historical points, exam findings, and any diagnostic results supporting the discharge/admit diagnosis, the need for outpatient follow up, for definitive care, to return to the emergency department if symptoms worsen or persist or if there are any questions or concerns that arise at home. Administered Medications: 19:34 Drug: Dexamethasone IM 10 mg IM once Route: IM; Site: left gluteus; cm10 19:43 Follow up: Response: No adverse reaction cm10 Disposition Summary: 12/29/23 19:28 Discharge Ordered Notes: Location: Home sb4 Problem: new sb4 Symptoms: have improved sb4 Condition: Stable sb4 Diagnosis - Irritant contact dermatitis due to plants, except food sb4 Followup: sb4 - With: Emergency Department - When: - Reason: Trouble breathing, Worsening of condition Discharge Instructions: - Discharge Summary Sheet sb4 - Poison Julia Dermatitis sb4 Forms: - Patient Portal Instructions sb4 - Leadership Thank You Letter sb4 Prescriptions: - Prednisone 20 mg Oral Tablet - take 1 tablet ORAL route every 12 hours for 5 days; 10 tablet; Refills: 0, sb4 Product Selection Permitted Signatures: Jasmin Henderson PA-C PA-C sb4 Gris Alvarado RN RN cm10
[2023-12-29] MEDS ORDERED: dexAMETHasone 10 MG/ML VIAL ONE (19:32)
--- NOTE | 2023-12-29 19:43 | ER ---
Nurse's Notes [facility] Name: Constantino Montes De Oca Age: 43 yrs Sex: Male : 1980 Arrival Date: 12/29/2023 Time: 19:14 Bed 6 Private MD: Diagnosis: Irritant contact dermatitis due to plants, except food Presentation: 12/28 19:28 Chief complaint: Patient states: Exposed to poison kira on Sunday and has rash to cm10 bilateral arms, neck and lip. Coronavirus screen: Client denies travel out of the [place] in the last 14 days. Ebola Screen: Patient denies travel to an Ebola-affected area in the 21 days before illness onset. No symptoms or risks identified at this time. Initial Sepsis Screen: Does the patient meet any 2 criteria? No. Patient's initial sepsis screen is negative. Does the patient have a suspected source of infection? No. Patient's initial sepsis screen is negative. Risk Assessment: Do you want to hurt yourself or someone else? Patient reports no desire to harm self or others. Onset of symptoms was December 24, 2023. 19:28 Method Of Arrival: Ambulatory cm10 19:28 Acuity: MELINA 4 cm10 Triage Assessment: 19:29 General: Appears in no apparent distress. comfortable, Behavior is calm, cooperative. cm10 Pain: Denies pain. Neuro: No deficits noted. Level of Consciousness is awake, alert, obeys commands, Oriented to person, place, time, situation, Appropriate for age. Respiratory: No deficits noted. Airway is patent Respiratory effort is even, unlabored, Respiratory pattern is regular, symmetrical. Derm: Rash noted that is itchy, red, on mouth, back of neck, right arm and left arm. Musculoskeletal: No deficits noted. Range of motion: intact in all extremities. Historical: - Allergies: 19:29 No Known Allergies; cm10 - PMHx: 19:29 Back pain; Borderline Diabetes; Hypertensive disorder; cm10 - Immunization history:: Adult Immunizations up to date. - Infectious Disease History:: Denies. - Social history:: Smoking status: Patient reports use of chewing tobacco. Screenin:30 [facility] ED Fall Risk Assessment (Adult) History of falling in the last 3 months, cm10 including since admission No falls in past 3 months (0 pts) Confusion or Disorientation No (0 pts) Intoxicated or Sedated No (0 pts) Impaired Gait No (0 pts) Mobility Assist Device Used No (0 pt) Altered Elimination No (0 pt) Score/Fall Risk Level 0 - 2 = Low Risk Oriented to surroundings, Maintained a safe environment, Hourly rounding (assess needs \T\ fall precautionary measures) done. Abuse screen: Denies threats or abuse. Denies injuries from another. Nutritional screening: No deficits noted. Tuberculosis screening: No symptoms or risk factors identified. Vital Signs: 19:28 BP 150 / 83; Pulse 83; Resp 16; Temp 98.6; Pulse Ox 100% ; Weight 104.33 kg; Height 5 cm10 ft. 11 in. ; Pain 0/10; 19:28 Body Mass Index 32.08 (104.33 kg, 180.34 cm) cm10 19:28 Pain Scale: Adult cm10 ED Course: 19:17 Patient arrived in ED. ra3 19:18 Jasmin Henderson [facility]-C [facility]. sb4 19:18 Yazan Velasquez MD is Attending Physician. sb4 19:27 Gris Alvarado, RN is Primary Nurse. cm10 19:29 Triage completed. cm10 19:30 Arm band placed on Patient placed in an exam room, on a stretcher. cm10 19:30 Patient has correct armband on for positive identification. Bed in low position. Call cm10 light in reach. Side rails up X 1. Provided Education on: ER process and procedures.. Cardiac monitoring not applicable on this patient. 19:30 No provider procedures requiring assistance completed. Patient did not have IV access cm10 during this emergency room visit. Administered Medications: 19:34 Drug: Dexamethasone IM 10 mg IM once Route: IM; Site: left gluteus; cm10 19:43 Follow up: Response: No adverse reaction cm10 Medication: 19:30 VIS not applicable for this client. cm10 Outcome: 19:28 Discharge ordered by . sb4 19:43 Discharged to home ambulatory, cm10 19:43 Condition: good 19:43 Discharge instructions given to patient, Instructed on discharge instructions, follow up and referral plans. medication usage, Demonstrated understanding of instructions, follow-up care, medications, Prescriptions given X 1, 19:43 Patient left the ED. cm10 Signatures: Jasmin Henderson PA-C PA-C sb4 Martinez, Clarissa, RN RN cm10 Ellie Cardona ra3
[2023-12-29 23:54] VITALS: BP 150/83; TEMP 98.6; O2SAT 100
== END 2023-12-29 19:43 | disposition home or self-care (01) ==
LOC: ER 19:14
DX: L24.7 Irritant contact dermatitis due to plants, except food (principal); F17.220 Nicotine dependence, chewing tobacco, uncomplicated
CPT/HCPCS: J1100

== ENCOUNTER 2024-04-11 06:06 | Emergency (ER) | payer OTHER ==
--- OUTSIDE RECORDS SUMMARY | 2024-04-11 06:09 | XMS REPORT | Continuity of Care Document ---
Author Name Unknown Address [address] [facility] [place], [place] [address] [place] [address] thconnect Address [address] [facility] [place] [address] Care Team Providers Care Block Sorter Name Role Phone Cherie Monterroso Primary Care Physician [phone] VERA SALINAS Attending Clinician BONY Cross Attending Clinician UnavailEMY Matthews Attending Clinician UnavailMAIKOL Troy Attending Clinician Unavailable Payers Payer Name Policy Type Policy Number Effective Date Expirati on Date Source [facility]NE [place] [facility] 9 [id number] 2023 00:00:00 Social History Social Habit Start [...] MG oral Tablet - 00:00: 00 Yes [id number] 1{tbl} QD Take 1 tablet by mouth daily. Elise sarah Methylpredn isolone Acetate (Depo-Medro l) 40 mg/ml - Physician Administere d (J1030) 08-06 19:15: 00 08-06 22:48 :00 No [id number] 40mg 40 mg, Physician Administer ed, ONCE, 1 dose, On Sun08/07/23 at 1415 Elsie sarah HYDROcodone -Acetaminop hen ([place]) 5-325 MG oral Tablet 08-05 00:00: 00 Yes [id number] 1{tbl} Q.25D Take 1 tablet by mouth every 6 hours as needed for pain. Elsie sarah HYDROcodone -Acetaminop hen ([place]) 5-325 MG oral Tablet 10 00:00: 00 Yes [id number] 1{tbl} Q.25D Take 1 tablet by mouth [...] Goal Plan of Care Note [code = 71232-9] Goal Plan of Care Note [code = 83849-4] Goal Plan of Care Note [code = 07418-9] Goal Plan of Care Note [code = 24270-9] Goal Plan of Care Note [code = 06889-3] Goal Plan of Care Note [code = 26696-9] Goal Plan of Care Note [code = 81382-1] Goal Plan of Care Note [code = 14401-7] Goal Plan of Care Note [code = 39956-5] Goal Plan of Care Note [code = 74496-9] Goal Plan of Care Note [code = 89081-2] Goal Plan of Care Note [code = 20870-9] Goal Plan of Care Note [code = 64191-2] Goal Plan of Care Note [code = 73232-3] Goal Plan of Care Note [code = 00274-7] Goal Plan of Care Note [code = 43943-5] Goal Plan of Care Note [code = 60616-2] Goal Plan of Care Note [code = 43070-1] Goal Plan of Care Note [code = 05125-6] Goal Plan of Care Note [code = 13871-2] Goal Plan of Care Note [code = 39452-8] Goal Plan of Care Note [code = 40284-7] Goal Plan of Care Note [code = 54946-8] Goal Plan of Care Note [code = 12157-8] Goal Plan of Care Note [code = 36526-3] Goal Plan of Care Note [code = 02490-6] Goal Plan of Care Note [code = 30712-7] Goal Plan of Care Note [code = 60618-2] Goal Plan of Care Note [code = 05977-6] Goal Plan of Care Note [code = 79498-2] Goal Plan of Care Note [code = 19385-3] Goal Plan of Care Note [code = 51318-1] Goal Plan of Care Note [code = 86961-7] Goal Plan of Care Note [code = 67449-8] Goal Plan of Care Note [code = 75757-1] Goal Plan of Care Note [code = 88629-0] Goal Plan of Care Note [code = 72052-7] Goal Plan of Care Note [code = 56224-0] Goal Plan of Care Note [code = 12687-2] Goal Plan of Care Note [code = 07388-5] Goal Plan of Care Note [code = 16884-7] Goal Plan of Care Note [code = 77076-5] Goal Plan of Care Note [code = 23312-9] Goal Plan of Care Note [code = 74652-6] Goal Plan of Care Note [code = 39421-8] Goal Plan of Care Note [code = 24757-3] Goal Plan of Care Note [code = 11681-6] Goal Plan of Care Note [code = 96931-5] Goal Plan of Care Note [code = 06515-3] Goal Plan of Care Note [code = 36431-6] Goal Plan of Care Note [code = 83132-3] Encounters Start Date/Time End Date/Time Encounter Type Admission Type Attending Clinicians Care Facility Care Department Encounter ID Source 2024-02-02 00:00:00 2024-02-02 00:00:00 Outpatient VERA SALINAS [id number] Elsie Ramos 2023-11-27 10:30:00 2023-11-27 10:30:00 Outpatient BONY MEI ELSIE RAMÍREZ [id number] [facility] 2023-11-07 16:30:00 2023-11-07 16:30:00 Outpatient VERA SALINAS ELSIE RAMÍREZ [id number] [facility] 2023-09-24 13:20:00 2023-09-24 13:20:00 Outpatient EMY HONG [id number] [facility] 2023-09-04 00:00:00 2023-09-04 00:00:00 Outpatient EMY HONG [id number] Elsie [facility] 2023-08-07 14:00:00 2023-08-07 14:00:00 Outpatient ЕЛЕНА MAIKOL ELSIE RAMÍREZ [id number] [facility] 2023-08-07 13:35:00 2023-08-07 13:35:00 Outpatient ELSIE RAMÍREZ [id number] [facility] 2023-08-06 14:10:00 2023-08-06 14:10:00 [facility] [id number] [facility] 13:25:00 2023-08-06 13:25:00 Outpatient ELSIE RAMÍREZ [id number] [facility] 2023-08-06 00:00:00 2023-08-06 00:00:00 Outpatient ЕЛЕНА MAIKOL ELSIE RAMÍREZ [id number] [facility] 2023-07-31 00:00:00 2023-07-31 00:00:00 Outpatient [facility] HONG [id number] [facility] 2023-06-27 11:10:00 2023-06-27 11:10:00 Outpatient EMY HONG [id number] [facility] 2023-06-25 00:00:00 2023-06-25 00:00:00 Outpatient EMY HONG [id number] [facility] 2022-03-31 15:42:03 2022-03-31 15:42:03 Outpatient [facility]3 Kade Hay 2022-03-11 09:32:29 2022-03-11 09:32:29 Outpatient [facility] 1224 Kade Hay 2022-03-10 00:00:00 2022-03-10 00:00:00 Outpatient Visit [id number] 2022-02-24 08:08:12 2022-02-24 08:08:12 Outpatient [facility] 1209 Kade Hay 2022-02-24 00:00:00 2022-02-24 00:00:00 Outpatient Visit [id number] 2021-10-21 00:00:00 2021-10-21 00:00:00 Outpatient Visit [id number] Results Test Description Test Time Test Comments Results Result Co mments Source VITAMIN [id number] 06:50:56* Test Item Value Reference Range Interpretation Comme nts VITAMIN B-12 (test code = 2840) 439 PG/ML 200-950 TSH, THIRD [id number] 06:50:56* Test Item Value Reference Range Interpretation Comme nts TSH, THIRD GENERATION (test code = 2821) 2.300 UIU/ML 0.400-4.100 SEDIMENTATION [id number] 04:43:36* Test Item Value Reference Range Interpretation Comme nts SEDIMENTATION RATE (test cod e = 1017) 5 MM/HOUR 0-15 C-REACTIVE [id number] 03:42:32* Test Item Value Reference Range Interpretation Comme nts C-REACTIVE PROTEIN (test code = 3513) <0.3 MG/DL <0.5 UNLESS OTHERW ISE INDICATED, [facility] TESTING PERFORMED [facility] [address] [place] [address] SHAKER PLATE OPERATOR: CESAR BAUER M.D. [place] NUMBER [id number] [facility] [place]. [id number] COMPREHENSIVE METABOLIC [id number] 03:41:56* Test Item Value Reference Range Interpretation [...] 29 MEQ/L 19-31 CALCIUM (test code = 220) 9.6 MG/DL 8.5-10.5 PROTEIN, TOTAL (test code [...] code = 2219) 24 U/L 5-50 HEMOGLOBIN [id number] 14:02:09* Test Item Value Reference Range Interpretation Comme nts HEMOGLOBIN A1c (test code = 42004) 5.5 % 4.2-5.6 UNLESS OTHERWISE INDICATED, ALL TESTING PERFORMED ATCLIN[facility] [address] [place] [address] SHAKER PLATE OPERATOR: CESAR BAUER M.D. [place] NUMBER [id number] [facility] [place]. [id number] LIPID [id number] 04:41:30* Test Item Value Reference Range Interpretation [...] SPECIMENS. FOR MOREINFORMATION, SEE CLIENT ANNOUNCEMENT AT [email or web address] RISK RATIO LDL/HDL (test code = 2238) 2.26 RATIO <3.55 COMPREHENSIVE METABOLIC [id number] 04:41:30* Test Item Value Reference Range Interpretation Comme nts GLUCOSE (test code = 2217) 102 MG/DL 70-99 H BUN (test code = 2208) 19 MG/DL 6-20 CREATININE (test code = 2214) 0.95 MG/DL 0.80-1.40 eGFR (2020 CKD-EPI) (test code = 24055) 104 ML/MIN/1.73 >60 CALC BUN/CREAT (test code = 2235) 20 RATIO 6-28 SODIUM (test code = 2231) 143 MEQ/L 133-146 POTASSIUM (test code = [...] 5-50 UNLESS OTHERWISE INDICATED, ALL [facility]ING [facility]FOR[facility] [address] [place] [address] SHAKER PLATE OPERATOR: CESAR BAUER M.D. CLIA NUMBER [id number] [facility] [place]. [id number] LIPID [id number] 00:00:00* Test Item Value Reference Range Interpretation Comme nts CHOLESTEROL (test code = 2210) 152 MG/DL TRIGLYCERIDES (test code = 2232) 149 MG/DL HDL CHOLESTEROL (test code = 2220) 39 MG/DL CALC LDL CHOL (test code = 2237) 88 MG/DL RISK RATIO LDL/HDL (test cod e = 2238) 2.26 RATIO COMPREHENSIVE METABOLIC [id number] 00:00:00* Test Item Value Reference Range Interpretation Comme nts GLUCOSE (test code = 2217) 102 MG/DL BUN (test code = 2208) 19 MG/DL CREATININE (test code = 2214) 0.95 MG/DL eGFR (2020 CKD-EPI) (test code = 20393) 104 ML/MIN/1.73 CALC BUN/CREAT (test code = [...] (test code = 2219) 25 U/L LIPID [id number] 00:00:00* Test Item Value Reference Range Interpretation Comme nts CHOLESTEROL (test code = 2210) 152 MG/DL TRIGLYCERIDES (test code = 2232) 149 MG/DL HDL CHOLESTEROL (test code = 2220) 39 MG/DL CALC LDL CHOL (test code = 2237) 88 MG/DL RISK RATIO LDL/HDL (test cod e = 2238) 2.26 RATIO COMPREHENSIVE METABOLIC [id number] 00:00:00* Test Item Value Reference Range Interpretation Comme nts GLUCOSE (test code = 2217) 102 MG/DL BUN (test code = 2208) 19 MG/DL CREATININE (test code = 2214) 0.95 MG/DL eGFR (2020 CKD-EPI) (test code = 65183) 104 ML/MIN/1.73 CALC BUN/CREAT (test code = [...] (test code = 2219) 25 U/L PSA, [id number] 05:29:41* Test Item Value Reference Range Interpretation Comme nts PSA, TOTAL (test code = 2606) 0.32 NG/ML See_Comment NOTE: Methodolog y is Gill Evelina Electrochemiluminescence Immunoassay traceable to WHO reference standard 96/760. UNLESS OTHERWISE INDICATED, ALL TESTING PERFORMED [facility] [address] [place] [address] SHAKER PLATE OPERATOR: CESAR BAUER M.D. CLIA NUMBER [id number] [facility] [place]. [id number] [Automated message] The system which generated this result transmitted reference range: <=4.00. The reference range was not used to interpret this result as normal/abnormal. LIPID [id number] 03:50:33* Test Item Value Reference Range Interpretation [...] SPECIMENS. FOR MOREINFORMATION, SEE CLIENT ANNOUNCEMENT AT [email or web address] RISK RATIO LDL/HDL (test code = 2238) 2.35 RATIO <3.55 COMPREHENSIVE METABOLIC [id number] 03:50:33* Test Item Value Reference Range Interpretation Comme nts GLUCOSE (test code = 2217) 107 MG/DL 70-99 H BUN (test code = 2208) 21 MG/DL 6-20 H CREATININE (test code = 2214) 0.93 MG/DL 0.80-1.40 EFFECTIVE 02/28/2021, [facility] HAS IMPLEMENTED THE NKF-ASN RECOMMENDED KD-EPI EGFR REFIT CALCULATION THAT DOES NOT INCLUDE A COEFFICIENT FORRACE. FOR MORE INFORMATION, SEE ANNOUNCEMENT [email or web address] eGFR (2020 CKD-EPI) (test code = 37496) 106 ML/MIN/1.73 >60 CALC BUN/CREAT (test code [...] G/DL 3.5-5.2 CALC GLOBULIN (test code = 0) 2.5 G/DL 1.9-3.7 CALC A/G RATIO (test code = 2233) 1.9 RATIO 1.0-2.6 BILIRUBIN, TOTAL (test code = 2206) 0.4 MG/DL See_Comment [Automated me ssage] The system which generated this result transmitted reference range: <=1.2. The reference range was not used to interpret this result as normal/abnormal. ALKALINE PHOSPHATASE (test code = 2203) 100 U/L 40-117 AST (test code = 2217) 23 U/L 9-50 ALT (test code = 2218) 32 U/L 5-50 CBC W/AUTO DIFF WITH [id number] 03:49:19* Test Item Value Reference Range Interpretation [...] DIFFERENTIAL WILL BE ELIMINATED REDUNDANT TOABSOLUTE COUNTS.SEE [email or web address] te LYMPHOCYTES (test code = 1010) [...] 0.00-0.10 ABS NUCLEATED RBCS (test code = 12721) 0.00 K/UL 0.00-0.11 CBC W/AUTO [id number] 00:00:00* Test Item Value Reference Range Interpretation [...] ABS NUCLEATED RBCS (test cod e = 92438) 0.00 K/UL LIPID [id number] 00:00:00* Test Item Value Reference Range Interpretation Comme nts CHOLESTEROL (test code = 2210) 133 MG/DL TRIGLYCERIDES (test code = 2232) 108 MG/DL HDL CHOLESTEROL (test code = 2220) 34 MG/DL CALC LDL CHOL (test code = 2237) 80 MG/DL RISK RATIO LDL/HDL (test cod e = 2238) 2.35 RATIO COMPREHENSIVE METABOLIC [id number] 00:00:00* Test Item Value Reference Range Interpretation Comme nts GLUCOSE (test code = 2217) 107 MG/DL BUN (test code = 2208) 21 MG/DL CREATININE (test code = 2214) 0.93 MG/DL eGFR (2020 CKD-EPI) (test code = 81615) 106 ML/MIN/1.73 CALC BUN/CREAT (test code = [...] (test code = 2219) 32 U/L PSA, [id number] 00:00:00* Test Item Value Reference Range Interpretation Comme nts PSA, TOTAL (test code = 2606) 0.32 NG/ML CBC W/AUTO [id number] 00:00:00* Test Item Value Reference Range Interpretation [...] ABS NUCLEATED RBCS (test cod e = 61107) 0.00 K/UL CBC W/AUTO [id number] 00:00:00* Test Item Value Reference Range Interpretation [...] ABS NUCLEATED RBCS (test cod e = 39642) 0.00 K/UL LIPID [id number] 00:00:00* Test Item Value Reference Range Interpretation Comme nts CHOLESTEROL (test code = 2210) 133 MG/DL TRIGLYCERIDES (test code = 2232) 108 MG/DL HDL CHOLESTEROL (test code = 2220) 34 MG/DL CALC LDL CHOL (test code = 2237) 80 MG/DL RISK RATIO LDL/HDL (test cod e = 2238) 2.35 RATIO COMPREHENSIVE METABOLIC [id number] 00:00:00* Test Item Value Reference Range Interpretation Comme nts GLUCOSE (test code = 2217) 107 MG/DL BUN (test code = 2208) 21 MG/DL CREATININE (test code = 2214) 0.93 MG/DL eGFR (2020 CKD-EPI) (test code = 16142) 106 ML/MIN/1.73 CALC BUN/CREAT (test code = [...] (test code = 2219) 32 U/L LIPID [id number] 00:00:00* Test Item Value Reference Range Interpretation Comme nts CHOLESTEROL (test code = 2210) 133 MG/DL TRIGLYCERIDES (test code = 2232) 108 MG/DL HDL CHOLESTEROL (test code = 2220) 34 MG/DL CALC LDL CHOL (test code = 2237) 80 MG/DL RISK RATIO LDL/HDL (test cod e = 2238) 2.35 RATIO PSA, [id number] 00:00:00* Test Item Value Reference Range Interpretation Comme nts PSA, TOTAL (test code = 2606) 0.32 NG/ML COMPREHENSIVE METABOLIC [id number] 00:00:00* Test Item Value Reference Range Interpretation Comme nts GLUCOSE (test code = 2217) 107 MG/DL BUN (test code = 2208) 21 MG/DL CREATININE (test code = 2214) 0.93 MG/DL eGFR (2020 CKD-EPI) (test code = 28331) 106 ML/MIN/1.73 CALC BUN/CREAT (test code = [...] (test code = 2219) 32 U/L PSA, [id number] 00:00:00* Test Item Value Reference Range Interpretation Comme nts PSA, TOTAL (test code = 2606) 0.32 NG/ML LIPID [id number] 00:00:00* Test Item Value Reference Range Interpretation Comme nts CHOLESTEROL (test code = 2210) 159 MG/DL TRIGLYCERIDES (test code = 2232) 223 MG/DL HDL CHOLESTEROL (test code = 2220) 37 MG/DL CALC LDL CHOL (test code = 2237) 91 MG/DL RISK RATIO LDL/HDL (test cod e = 2238) 2.46 RATIO HEMOGLOBIN [id number] 00:00:00* Test Item Value Reference Range Interpretation Comme nts HEMOGLOBIN A1c (test code = 20979) 5.6 % COMPREHENSIVE METABOLIC [id number] 00:00:00* Test Item Value Reference Range Interpretation Comme nts GLUCOSE (test code = 2217) 113 MG/DL BUN (test code = 2208) 17 MG/DL CREATININE (test code = 2214) 0.82 MG/DL eGFR AMER. (test cod e = 29626) 130 ML/MIN/1.73 eGFR NON- AMER. (test code = 63329) 112 ML/MIN/1.73 CALC BUN/CREAT (test code = [...] (test code = 2219) 23 U/L LIPID [id number] 00:00:00* Test Item Value Reference Range Interpretation Comme nts CHOLESTEROL (test code = 2210) 159 MG/DL TRIGLYCERIDES (test code = 2232) 223 MG/DL HDL CHOLESTEROL (test code = 2220) 37 MG/DL CALC LDL CHOL (test code = 2237) 91 MG/DL RISK RATIO LDL/HDL (test cod e = 2238) 2.46 RATIO HEMOGLOBIN [id number] 00:00:00* Test Item Value Reference Range Interpretation Comme nts HEMOGLOBIN A1c (test code = 23489) 5.6 % LIPID [id number] 00:00:00* Test Item Value Reference Range Interpretation Comme nts CHOLESTEROL (test code = 2210) 159 MG/DL TRIGLYCERIDES (test code = 2232) 223 MG/DL HDL CHOLESTEROL (test code = 2220) 37 MG/DL CALC LDL CHOL (test code = 2237) 91 MG/DL RISK RATIO LDL/HDL (test cod e = 2238) 2.46 RATIO HEMOGLOBIN [id number] 00:00:00* Test Item Value Reference Range Interpretation Comme nts HEMOGLOBIN A1c (test code = 88065) 5.6 % COMPREHENSIVE METABOLIC [id number] 00:00:00* Test Item Value Reference Range Interpretation Comme nts GLUCOSE (test code = 2217) 113 MG/DL BUN (test code = 2208) 17 MG/DL CREATININE (test code = 2214) 0.82 MG/DL eGFR AMER. (test cod e = 60649) 130 ML/MIN/1.73 eGFR NON- AMER. (test code = 56667) 112 ML/MIN/1.73 CALC BUN/CREAT (test code = [...] code = 2219) 23 U/L COMPREHENSIVE METABOLIC [id number] 00:00:00* Test Item Value Reference Range Interpretation Comme nts GLUCOSE (test code = 2217) 113 MG/DL BUN (test code = 2208) 17 MG/DL CREATININE (test code = 2214) 0.82 MG/DL eGFR AMER. (test cod e = 31333) 130 ML/MIN/1.73 eGFR NON- AMER. (test code = 37155) 112 ML/MIN/1.73 CALC BUN/CREAT (test code = [...] code = 2219) 23 U/L CBC W/AUTO [id number] 00:00:00* Test Item Value Reference Range Interpretation [...] (test code = 1015) 149 K/UL HEMOGLOBIN [id number] 00:00:00* Test Item Value Reference Range Interpretation Comme nts HEMOGLOBIN A1c (test code = 73396) 5.6 % [id number] 00:00:00* Test Item Value Reference Range Interpretation Comme nts TSH (test code = 2821) 2.84 UIU/ML CBC W/AUTO [id number] 00:00:00* Test Item Value Reference Range Interpretation [...] code = 1015) 149 K/UL COMPREHENSIVE METABOLIC [id number] 00:00:00* Test Item Value Reference Range Interpretation Comme nts GLUCOSE (test code = 2217) 94 MG/DL BUN (test code = 2208) 18 MG/DL CREATININE (test code = 2214) 0.80 MG/DL eGFR AMER. (test cod e = 89754) 134 ML/MIN/1.73 eGFR NON- AMER. (test code = 69944) 116 ML/MIN/1.73 CALC BUN/CREAT (test code = [...] (test code = 2219) 18 U/L LIPID [id number] 00:00:00* Test Item Value Reference Range Interpretation Comme nts CHOLESTEROL (test code = 2210) 161 MG/DL TRIGLYCERIDES (test code = 2232) 240 MG/DL HDL CHOLESTEROL (test code = 2220) 45 MG/DL CALC LDL CHOL (test code = 2237) 68 MG/DL RISK RATIO LDL/HDL (test cod e = 2238) 1.51 RATIO CBC W/AUTO [id number] 00:00:00* Test Item Value Reference Range Interpretation [...] (test code = 1015) 149 K/UL HEMOGLOBIN [id number] 00:00:00* Test Item Value Reference Range Interpretation Comme nts HEMOGLOBIN A1c (test code = 52649) 5.6 % HEMOGLOBIN [id number] 00:00:00* Test Item Value Reference Range Interpretation Comme nts HEMOGLOBIN A1c (test code = 25959) 5.6 % [id number] 00:00:00* Test Item Value Reference Range Interpretation Comme nts TSH (test code = 2821) 2.84 UIU/ML COMPREHENSIVE METABOLIC [id number] 00:00:00* Test Item Value Reference Range Interpretation Comme nts GLUCOSE (test code = 2217) 94 MG/DL BUN (test code = 2208) 18 MG/DL CREATININE (test code = 2214) 0.80 MG/DL eGFR AMER. (test cod e = 46690) 134 ML/MIN/1.73 eGFR NON- AMER. (test code = 02829) 116 ML/MIN/1.73 CALC BUN/CREAT (test code = [...] (test code = 2219) 18 U/L LIPID [id number] 00:00:00* Test Item Value Reference Range Interpretation Comme nts CHOLESTEROL (test code = 2210) 161 MG/DL TRIGLYCERIDES (test code = 2232) 240 MG/DL HDL CHOLESTEROL (test code = 2220) 45 MG/DL CALC LDL CHOL (test code = 2237) 68 MG/DL RISK RATIO LDL/HDL (test cod e = 2238) 1.51 RATIO [id number] 00:00:00* Test Item Value Reference Range Interpretation Comme nts TSH (test code = 2821) 2.84 UIU/ML COMPREHENSIVE METABOLIC [id number] 00:00:00* Test Item Value Reference Range Interpretation Comme nts GLUCOSE (test code = 2217) 94 MG/DL BUN (test code = 2208) 18 MG/DL CREATININE (test code = 2214) 0.80 MG/DL eGFR AMER. (test cod e = 80390) 134 ML/MIN/1.73 eGFR NON- AMER. (test code = 34673) 116 ML/MIN/1.73 CALC BUN/CREAT (test code = [...] (test code = 2219) 18 U/L LIPID [id number] 00:00:00* Test Item Value Reference Range Interpretation Comme nts CHOLESTEROL (test code = 2210) 161 MG/DL TRIGLYCERIDES (test code = 2232) 240 MG/DL HDL CHOLESTEROL (test code = 2220) 45 MG/DL CALC LDL CHOL (test code = 2237) 68 MG/DL RISK RATIO LDL/HDL (test cod e = 2238) 1.51 RATIO
--- NOTE | 2024-04-11 07:22 | RAD REPORT ---
EXAMINATION: CT HEAD WITHOUT CONTRAST CLINICAL INDICATION: Male, 44 years old.blurred vision TECHNIQUE: Axial CT images from the skull base to the vertex without intravenous contrast. Coronal an d sagittal reformatted images were created from the data set. One or more of the following dose reduction techniques were used: Automated exposure control, adjustment of the mA and/or kV according to patient size, and/or iterative reconstruction. Unless otherwise specified, incidental findings do not require dedicated imaging follow-up. [id number]. COMPARISON: No prior exam. FINDINGS: INTRACRANIAL: No acute intracranial hemorrhage. No hydrocephalus. No mass effect or midline shift. No significant white matter disease. VASCULATURE: No visualized abnormalities in the arteries or dural venous sinuses. SCALP/SKULL: No significant soft tissue or osseous abnormalities. SINUSES: The visualized paranasal sinuses and mastoid air cells are predominantly clear. IMPRESSION: No acute intracranial abnormality.
--- NOTE | 2024-04-11 07:27 | ER ---
Nurse's Notes [facility] Name: Constantino Montes De Oca Age: 44 yrs Sex: Male : 1980 Arrival Date: 04/11/2024 Time: 06:06 Bed 3 Private MD: Diagnosis: Periorbital cellulitis Presentation: 04/11 06:23 Chief complaint: Patient states: PT WOKE UP WITH LEFT EYE SWOLLEN AND CRUSTY, ITCHING, vc1 BLURRED VISION. Coronavirus screen: Client denies travel out of the [place] in the last 14 days. Ebola Screen: Patient denies exposure to infectious person. Initial Sepsis Screen: Does the patient meet any 2 criteria? No. Patient's initial sepsis screen is negative. Does the patient have a suspected source of infection? No. Patient's initial sepsis screen is negative. Risk Assessment: Do you want to hurt yourself or someone else? Patient reports no desire to harm self or others. Onset of symptoms was April 11, 2024 at 04:30. 06:23 Method Of Arrival: Ambulatory vc1 06:23 Acuity: MELINA 5 vc1 06:23 Acuity: MELINA 4 vc1 Triage Assessment: 06:23 General: Appears uncomfortable, Behavior is calm, cooperative. Pain: Denies pain. br2 Historical: - Allergies: 06:28 No Known Allergies; vc1 - PMHx: 06:28 Hypertensive disorder; vc1 - Immunization history:: Adult Immunizations up to date. - Infectious Disease History:: Denies. - Social history:: Smoking status: Patient reports use of chewing tobacco. Patient uses alcohol, occasionally. Patient/guardian denies using street drugs. - Family history:: not pertinent. - Hospitalizations: : No recent hospitalization is reported. Screenin:23 [facility] ED Fall Risk Assessment (Adult) History of falling in the last 3 months, br2 including since admission No falls in past 3 months (0 pts) Confusion or Disorientation No (0 pts) Intoxicated or Sedated No (0 pts) Impaired Gait No (0 pts) Mobility Assist Device Used No (0 pt) Altered Elimination No (0 pt) Score/Fall Risk Level 0 - 2 = Low Risk Oriented to surroundings. Abuse screen: Denies threats or abuse. Denies injuries from another. Nutritional screening: No deficits noted. Tuberculosis screening: No symptoms or risk factors identified. Assessment: 06:23 Reassessment: SEE TRIAGE ASSESSMENT. Neuro: Garcia Agitation-Sedation Scale (RASS): 0 br2 - Alert and Calm Level of Consciousness is awake, alert, obeys commands, Oriented to person, place, time, situation. Cardiovascular: Capillary refill < 3 seconds. Respiratory: Airway is patent Respiratory effort is even, unlabored, Respiratory pattern is regular, symmetrical. GI: No signs and/or symptoms were reported involving the gastrointestinal system. : No signs and/or symptoms were reported regarding the genitourinary system. EENT: Reports blurred vision in outer aspect of conjuctiva of right eye, iris of right eye and inner aspect of conjuctiva of right eye ITCHING, DISCHARGE. Derm: No signs and/or symptoms reported regarding the dermatologic system. Musculoskeletal: Capillary refill < 3 seconds, Range of motion: intact in all extremities. 07:40 Reassessment: Patient appears in no apparent distress at this time. Patient and/or db family updated on plan of care and expected duration. Pain level reassessed. Patient is alert, oriented x 3, equal unlabored respirations, skin warm/dry/pink. Patient states feeling better. General: Appears in no apparent distress. comfortable, Behavior is calm, cooperative. Vital Signs: 06:23 BP 171 / 94; Pulse 60; Resp 18; Temp 97.1; Pulse Ox 100% ; Weight 111.13 kg; Height 5 vc1 ft. 11 in. ; Pain 0/10; 07:35 BP 149 / 98; Pulse 69; Resp 16; Pulse Ox 100% ; ko1 06:23 Body Mass Index 34.17 (111.13 kg, 180.34 cm) vc1 06:23 Pain Scale: Adult vc1 ED Course: 06:10 Patient arrived in ED. gm2 06:23 Arm band placed on right wrist. br2 06:23 Patient has correct armband on for positive identification. Provided Education on: PLAN br2 OF CARE. 06:28 Triage completed. vc1 06:29 Alonzo Prescott MD is Attending Physician. rn 06:30 Alysha Marley RN is Primary Nurse. br2 06:59 CT Head Brain wo Cont In Process Unspecified. EDMS 07:26 Ct Bach MD is Referral Physician. rn 07:35 No provider procedures requiring assistance completed. Patient did not have IV access ko1 during this emergency room visit. 07:40 Pulse ox on. NIBP on. Warm blanket given. Pillow given. db Administered Medications: No medications were administered Medication: 07:35 VIS not applicable for this client. ko1 Outcome: 07:27 Discharge ordered by . rn 07:40 Discharged to home ambulatory, with family, db 07:40 Condition: stable 07:40 Discharge instructions given to patient, family, Instructed on discharge instructions, follow up and referral plans. Prescriptions given X 2, 07:42 Patient left the ED. db Signatures: Dispatcher [employer] EDMS Alonzo Prescott MD MD rn Calcote, Vanessa RN RN 1 Vanita Ruiz RN RN ko1 Amada Guzman RN RN db Libby Salgado gm2 Alysha Marley RN RN br2
--- NOTE | 2024-04-11 07:27 | EDPHYS ---
Physician Documentation [facility] Name: Constantino Montes De Oca Age: 44 yrs Sex: Male : 1980 Arrival Date: 04/11/2024 Time: 06:06 Bed 3 Private MD: ED Physician Alonzo Prescott HPI: 04/11 06:35 This 44 yrs old Male presents to ER via Ambulatory with complaints of Eye rn Swelling, Blurred Vision. 06:35 The patient sustained None. to the left eye, caused by an unknown mechanism. Onset: The rn symptoms/episode began/occurred this morning. Aggravated by rubbing, Alleviated by Cleaning eye and time. Severity of symptoms: At their worst the symptoms were mild in the emergency department the symptoms have improved. The patient has experienced a previous episode. Patient reports went to bed fine, woke up this morning with left eye swelling and crusting, had to "peel it open this morning". Denies any trauma or splash. Reports had 2 hours of blurred vision of the left eye where he looked a little hazy, after he cleaned his eye and gave it some time and arrived here the blurred vision resolved. Still reports left eye swelling but no current drainage. No fever. Had headache earlier but no longer hurts. Eyeball itself does not hurt either. No diplopia.. Historical: - Allergies: 06:28 No Known Allergies; vc1 - PMHx: 06:28 Hypertensive disorder; vc1 - Immunization history:: Adult Immunizations up to date. - Infectious Disease History:: Denies. - Social history:: Smoking status: Patient reports use of chewing tobacco. Patient uses alcohol, occasionally. Patient/guardian denies using street drugs. - Family history:: not pertinent. - Hospitalizations: : No recent hospitalization is reported. ROS: 06:35 Constitutional: Negative for fever, chills, and weight loss, Eyes: Positive for left rn eye swelling and blurred vision Neck: Negative for injury, pain, and swelling, Cardiovascular: Negative for chest pain, palpitations, and edema, Respiratory: Negative for shortness of breath, cough, wheezing, and pleuritic chest pain, Neuro: Negative for headache, weakness, numbness, tingling, and seizure, Exam: 06:35 Constitutional: This is a well developed, well nourished patient who is awake, alert, rn and in no acute distress. Ambulatory to room without assistance Head/Face: Normocephalic, atraumatic. Eyes: Pupils equal round and reactive to light, extra-ocular motions intact. Mild left periorbital skin swelling, no discoloration or redness. No foreign body noted in eye. No significant drainage noted. Mild conjunctival injection. No abnormal findings of sclera. No tenderness or firmness of the eyeball noted Neuro: Awake and alert, GCS 15 Vital Signs: 06:23 BP 171 / 94; Pulse 60; Resp 18; Temp 97.1; Pulse Ox 100% ; Weight 111.13 kg; Height 5 vc1 ft. 11 in. ; Pain 0/10; 07:35 BP 149 / 98; Pulse 69; Resp 16; Pulse Ox 100% ; ko1 06:23 Body Mass Index 34.17 (111.13 kg, 180.34 cm) vc1 06:23 Pain Scale: Adult vc1 MDM: 06:29 Medical Screening Exam initiated rn 07:25 Differential diagnosis: Periorbital cellulitis. Data reviewed: vital signs, nurses rn notes, radiologic studies, CT scan, and as a result, I will discharge patient. Counseling: I had a detailed discussion with the patient and/or guardian regarding the historical points, exam findings, and any diagnostic results supporting the discharge/admit diagnosis, radiology results, the need for outpatient follow up, to return to the emergency department if symptoms worsen or persist or if there are any questions or concerns that arise at home. Special discussion: I discussed with the patient/guardian in detail that at this point there is no indication for admission to the hospital. It is understood, however, that if the symptoms persist or worsen the patient needs to return immediately for re-evaluation. Based on the history and exam findings, there is no indication for further emergent testing or inpatient evaluation. I discussed with the patient/guardian the need to see the opthamologist for further evaluation of the symptoms. 07:25 ED course: CT head without acute intracranial findings. Will treat as periorbital rn cellulitis or conjunctivitis with oral antibiotics and drops. Recommend ophthalmologic Follow-up. No headache or eye pain and blurred vision has resolved. Since patient woke up with matted eye and drainage we will treat as an infectious etiology. Return precautions given and understood.. 04/11 06:35 Order name: CT Head Brain wo Cont; Complete Time: 07:25 rn Administered Medications: No medications were administered Disposition Summary: 04/11/24 07:27 Discharge Ordered Notes: Location: Home rn Problem: new rn Symptoms: have improved rn Condition: Stable rn Diagnosis - Periorbital cellulitis rn Followup: rn - With: Ct Bach MD - When: As needed - Reason: Recheck today's complaints, Re-evaluation by your physician Discharge Instructions: - Discharge Summary Sheet rn - Bacterial Conjunctivitis, Adult rn - Preseptal Cellulitis, Adult rn Forms: - Medication Reconciliation Form rn - Antibiotic [employer] internet sales [employer] - Prescription Opioid Use rn - Patient Portal Instructions rn - Leadership Thank You Letter rn - Work release form db Prescriptions: - Vigamox 0.5 % Ophthalmic Drops - instill 1 drop OPHTHALMIC route every 8 hours for 7 days; 5 milliliter; rn Refills: 0, Product Selection Permitted - Bactrim DS 800-160 mg Oral Tablet - take 1 tablet ORAL route every 12 hours for 10 days; 20 tablet; Refills: 0, rn Product Selection Permitted Signatures: Dispatcher [employer] Alonzo Hutchison MD MD rn Lucia Gonzalez RN RN vc1
[2024-04-11 08:27] VITALS: TEMP 97.1; O2SAT 100
[2024-04-11 08:28] VITALS: BP 149/98
== END 2024-04-11 07:42 | disposition home or self-care (01) ==
LOC: ER 06:06
DX: L03.213 Periorbital cellulitis (principal)
CPT/HCPCS: 70450; 99283